=== PATIENT | female | born 1950 | race Caucasian/White ===

== ENCOUNTER → 2017-02-17 | Outpatient (REF) | payer MEDICARE, OTHER | LOC: M LABDRAW1 13:47 | PROVIDERS: ATTEND Internal Medicine Endocrinology, Diabetes & Metabolism | DX: E89.0 Postprocedural hypothyroidism (principal); E55.9 Vitamin D deficiency, unspecified ==

== ENCOUNTER → 2017-09-18 | Outpatient (CLI) | payer MEDICARE, OTHER | LOC: M RAD 10:46 | DX: I70.213 Atherosclerosis of native arteries of extremities with intermittent claudication, bilateral legs (principal) | CPT/HCPCS: 93923 ==

== ENCOUNTER → 2017-10-14 | Outpatient (CLI) | payer MEDICARE, OTHER ==
[~2017-10-14] MED LIST: HEPARIN 1,000 UNITS/ML 10ML VIAL (FOR RADIOLOGY& DIALYSIS ONLY) As Ordered; ISOVUE-300 61% 50ML VIAL (Q9967) As Ordered; MIDAZOLAM INJ 2 MG/2 ML VIAL (J2250) As Ordered; fentaNYL 100 MCG/2 ML INJECTION (J3010) As Ordered
[2017-10-14 08:37] LABS: HEMATOCRIT 37.7 % (36.0-47.0); MEAN CORPUSCULAR HGB CONC 34.5 g/dl (32.0-36.5); MEAN CORPUSCULAR VOLUME 84.2 fl (80.0-96.0); PLATELET COUNT, AUTOMATED 331 10^3/uL (150-450); RED BLOOD COUNT 4.48 10^6/uL (4.00-5.40); RED CELL DISTRIBUTION WIDTH 13.2 % (11.5-14.5); WHITE BLOOD COUNT 6.7 10^3/uL (4.0-10.0)
[2017-10-14 08:56] LABS: ANION GAP 5 MEQ/L (8-16); BLOOD UREA NITROGEN 31 MG/DL (7-18); CALCIUM LEVEL 9.5 MG/DL (8.8-10.2); CARBON DIOXIDE LEVEL 24 MEQ/L (21-32); CHLORIDE LEVEL 111 MEQ/L (98-107); CREATININE FOR GFR 1.36 MG/DL (0.55-1.30); GLOMERULAR FILTRATION RATE 41.5 (>45); GLUCOSE, FASTING 164 MG/DL (70-100); POTASSIUM SERUM 3.7 MEQ/L (3.5-5.1); SODIUM LEVEL 140 MEQ/L (136-145)
== END | disposition home or self-care (01) ==
LOC: M IRPRO 07:34
DX: I70.213 Atherosclerosis of native arteries of extremities with intermittent claudication, bilateral legs (principal); N18.9 Chronic kidney disease, unspecified; Z72.0 Tobacco use
CPT/HCPCS: 36200

== ENCOUNTER → 2018-02-17 | Outpatient (REF) | payer MEDICARE, OTHER ==
[2018-02-17 17:36] LABS: FREE T4 1.36 NG/DL (0.76-1.46)
[2018-02-17 17:36] LABS: CALCIUM LEVEL 9.1 MG/DL (8.8-10.2)
[2018-02-17 21:54] LABS: TOTAL 25(OH) VITAMIN D 48.4 NG/ML (30.0-100.0)
== END ==
LOC: M LABDRAW1 15:50
DX: E89.0 Postprocedural hypothyroidism (principal); E55.9 Vitamin D deficiency, unspecified
CPT/HCPCS: 82310

== ENCOUNTER → 2018-07-02 | Outpatient (CLI) | payer MEDICARE, OTHER ==
[~2018-07-02] MED LIST changes: +ASPI81TA85 PO; +BUSP15TA47 PO; +CALC600T60 PO; +DULO1CAP3 PO; +FENO1CAP2 PO; +FOSA70TA PO; -HEPARIN 1,000 UNITS/ML 10ML VIAL (FOR RADIOLOGY& DIALYSIS ONLY) As Ordered; -ISOVUE-300 61% 50ML VIAL (Q9967) As Ordered; -MIDAZOLAM INJ 2 MG/2 ML VIAL (J2250) As Ordered; +PERCOCET PO; +SERO1TAB3 PO; +SYNT100T PO; +TOPI50TA9 PO; +TOPR100T13 PO; +VITA100067 PO; +VITA400C7 PO; -fentaNYL 100 MCG/2 ML INJECTION (J3010) As Ordered
--- NOTE | 2018-07-02 16:00 | REP ---
DUPLEX DOPPLER ULTRASOUND RIGHT LOWER EXTREMITY ARTERIAL SYSTEM: Real-time ultrasound evaluation and duplex Doppler interrogation of right lower extremity arterial system is performed. There is occlusion of the proximal right superficial femoral artery extending to the mid aspect with reconstitution of the mid aspect. Monophasic waveforms are seen throughout. There is very slow flow distal to the mid right superficial femoral artery. Right Peak systolic velocity External iliac artery 185 cm/s Common femoral artery 67 Profunda 77 Proximal SFA occluded Mid SFA 16 Distal SFA 44 Popliteal 46 Proximal ALEX 17 Proximal STRUCTURAL MANAGER 17 Distal STRUCTURAL MANAGER 14 Distal ALEX 21 IMPRESSION: Occlusion proximal superficial femoral artery with reconstitution of the mid aspect of the superficial femoral artery. There is very slow flow distal to that with diffusely monophasic waveforms. Electronically Signed by Johny Celaya MD 07/02/2018 04:16 P
== END ==
LOC: M RAD 13:09
PROVIDERS: ATTEND Surgery Vascular Surgery
DX: M79.604 Pain in right leg (principal); I70.201 Unspecified atherosclerosis of native arteries of extremities, right leg

== ENCOUNTER → 2018-07-07 | Outpatient (REF) | payer MEDICARE, OTHER ==
[2018-07-07 17:11] LABS: CALCIUM LEVEL 9.1 MG/DL (8.8-10.2)
[2018-07-07 17:30] LABS: TOTAL 25(OH) VITAMIN D 51.2 NG/ML (30.0-100.0)
== END ==
LOC: M LABDRAW1 15:47
PROVIDERS: ATTEND Nurse Practitioner Family
DX: M81.0 Age-related osteoporosis without current pathological fracture (principal)

== ENCOUNTER → 2018-08-02 | Outpatient (REF) | payer MEDICARE, OTHER ==
[2018-08-02 18:24] LABS: CALCIUM LEVEL 9.3 MG/DL (8.8-10.2); CREATININE FOR GFR 1.68 MG/DL (0.55-1.30); GLOMERULAR FILTRATION RATE 32.5 (>45); POTASSIUM SERUM 4.4 MEQ/L (3.5-5.1)
[2018-08-02 18:26] LABS: BASO # 0.1 10^3/uL (0.0-0.2); BASO % 0.7 % (0.0-1.0); EOS # 0.2 10^3/uL (0.0-0.50); EOS % 2.6 % (0.0-3.0); HEMATOCRIT 40.2 % (36.0-47.0); HEMOGLOBIN 13.3 g/dl (12.0-15.5); LYMPH % 33.9 % (24.0-44.0); MEAN CORPUSCULAR HEMOGLOBIN 28.4 pg (27.0-33.0); MEAN CORPUSCULAR HGB CONC 33.1 g/dl (32.0-36.5); MEAN CORPUSCULAR VOLUME 85.9 fl (80.0-96.0); MONO # 0.6 10^3/uL (0.0-0.8); MONO % 7.2 % (0.0-5.0); NEUTROPHILS # 4.9 10^3/uL (1.8-7.7); NEUTROPHILS % 55.3 % (36.0-66.0); PLATELET COUNT, AUTOMATED 336 10^3/uL (150-450); RED BLOOD COUNT 4.68 10^6/uL (4.00-5.40); WHITE BLOOD COUNT 8.8 10^3/uL (4.0-10.0)
== END ==
LOC: M LABDRAW1 17:20
PROVIDERS: ATTEND Surgery Vascular Surgery
DX: I70.213 Atherosclerosis of native arteries of extremities with intermittent claudication, bilateral legs (principal)

== ENCOUNTER → 2018-08-05 | Outpatient (CLI) | payer MEDICARE, OTHER ==
[~2018-08-05] MED LIST changes: +FENO135C6 PO; -FENO1CAP2 PO; +HEPARIN 1,000 UNITS/ML 10ML VIAL (FOR RADIOLOGY& DIALYSIS ONLY) As Ordered ONE; +ISOVUE-300 61% 50ML VIAL (Q9967) As Ordered ONE; +LIDOCAINE 2% MDV 20 ML VIAL As Ordered ONE; +MIDAZOLAM INJ 2 MG/2 ML VIAL (J2250) As Ordered ONE; +PROTAMINE SULF INJ 50 MG/5 ML VIAL (J2720) As Ordered ONE; +TOPR100T PO; -TOPR100T13 PO; +diphenhydrAMINE INJ 50MG/ML VIAL (J1200) As Ordered ONE; +fentaNYL 100 MCG/2 ML INJECTION (J3010) As Ordered ONE
--- NOTE | 2018-08-18 12:02 | REPIR ---
DATE OF PROCEDURE: 08/05/2018 ATTENDING SURGEON: Dr. Zahira Sahu ASSISTANTS: Tracey Rosas and Mariana Banks. PREOPERATIVE DIAGNOSES: Right lower extremity claudication, chronic renal insufficiency. POSTOPERATIVE DIAGNOSES: Right lower extremity claudication, chronic renal insufficiency. PROCEDURE: Ultrasound-guided left common femoral arterial cannulation, selective right common femoral artery catheter placement with angiogram, right common femoral artery angioplasty with 7 x 40 balloon, right external iliac artery angioplasty with 7 x 40 balloon, Mynx closure of the right common femoral arteriotomy. INDICATION: The patient is a 68-year-old female with right lower extremity claudication who has undergone a right femoral endarterectomy but has continued pain in the right lower extremity. The patient will undergo a right lower extremity angiogram with possible angioplasty stent and/or atherectomy. Risks, benefits and alternative treatment options were discussed with the patient. ANESTHESIA: Local sedation with 1 mg of Versed, 50 mcg of fentanyl and 20 mL of 2% lidocaine. FLUOROSCOPY TIME: 1.5 minutes. CONTRAST: 3 mL. SEDATION TIME: From 8:58 a.m. to 9:40 a.m. for a total of 42 minutes. HEPARIN: 7000 units. PROTAMINE: 50 mg. COMPLICATIONS: None. DRAINS: None. SPECIMENS: None. DESCRIPTION OF PROCEDURE: The patient was taken to the angiography suite, placed supine on the angiography table and then prepped and draped in standard surgical fashion. The left common femoral artery was cannulated using ultrasound guidance. The catheter was brought up over the bifurcation, placed in the right common femoral artery and angiogram was performed showing stenosis at the junction of the external iliac artery and common femoral artery in the region of the previous patch angioplasty. This was then angioplastied with 7 x 40 balloon with a completion angiogram showing resolution of the stenosis and excellent flow through the external iliac artery into the common femoral artery and profunda femoris. The superficial femoral artery was noted to be occluded. Catheters and wires were removed and the sheath was removed and a Mynx closure device used to close the arteriotomy in the left common femoral artery with an additional 10 minutes of adjunctive pressure applied for hemostasis. Dressings were then applied. The patient tolerated procedure well. All instrument, sponge and needle counts were correct at the end the case. There were no complications. Dr. Sahu was present for and directed the entire case. The patient was transferred to the holding area and subsequently discharged in stable condition.
== END | disposition home or self-care (01) ==
LOC: M IRPRO 07:55
PROVIDERS: ATTEND Surgery Vascular Surgery
DX: I70.211 Atherosclerosis of native arteries of extremities with intermittent claudication, right leg (principal); N18.9 Chronic kidney disease, unspecified
CPT/HCPCS: 37220; 37224; 75710; C1725; C1760; C1769; C1887; C1894; J2250; J2720; J3010; Q9967

== ENCOUNTER → 2018-08-26 | Outpatient (CLI) | payer MEDICARE, OTHER ==
[~2018-08-26] MED LIST changes: -HEPARIN 1,000 UNITS/ML 10ML VIAL (FOR RADIOLOGY& DIALYSIS ONLY) As Ordered ONE; -ISOVUE-300 61% 50ML VIAL (Q9967) As Ordered ONE; -LIDOCAINE 2% MDV 20 ML VIAL As Ordered ONE; -MIDAZOLAM INJ 2 MG/2 ML VIAL (J2250) As Ordered ONE; -PROTAMINE SULF INJ 50 MG/5 ML VIAL (J2720) As Ordered ONE; -diphenhydrAMINE INJ 50MG/ML VIAL (J1200) As Ordered ONE; -fentaNYL 100 MCG/2 ML INJECTION (J3010) As Ordered ONE
--- NOTE | 2018-08-26 18:20 | REP ---
Unilateral right lower extremity arterial Doppler ultrasound: History: Intermittent claudication. Most recent angiography August 04, 2018. The patient is status post right external iliac and right common femoral artery angioplasty. Sonographic findings: The right superficial femoral artery is seen to be occluded with reconstitution distally. There is a stenosis evidence of stenosis in the right profunda. Substantial plaquing is visible. Monophasic waveforms are noted. Velocity chart right lower extremity arteries: External iliac artery 151 cm/S CF A 58 Profunda 128 Proximal SFA occluded Mid SFA 22 Distal SFA 19 Popliteal 41 Proximal AT A 20 Tibioperoneal trunk 37 Proximal PRODUCT REPRESENTATIVE 18 Distal AT A 15 Distal AT A 20 Electronically Signed by Ti Antunez MD 08/26/2018 06:12 P
== END ==
LOC: M RAD 12:46
PROVIDERS: ATTEND Surgery Vascular Surgery
DX: I70.213 Atherosclerosis of native arteries of extremities with intermittent claudication, bilateral legs (principal)

== ENCOUNTER → 2019-01-31 | Outpatient (REF) | payer MEDICARE, OTHER ==
[~2019-01-31] MED LIST changes: -DULO1CAP3 PO; +DULO1CAP6 PO
[2019-01-31 16:56] LABS: CALCIUM LEVEL 9.5 MG/DL (8.8-10.2); FREE T4 1.16 NG/DL (0.76-1.46); THYROID STIMULATING HORMONE 4.72 uIU/ML (0.358-3.740)
[2019-01-31 17:01] LABS: TOTAL 25(OH) VITAMIN D 43.2 NG/ML (30.0-100.0)
== END ==
LOC: M LABDRAW1 15:46
PROVIDERS: ATTEND Nurse Practitioner Family
DX: E89.0 Postprocedural hypothyroidism (principal); E55.9 Vitamin D deficiency, unspecified; Z79.899 Other long term (current) drug therapy

== ENCOUNTER → 2019-03-04 | Outpatient (CLI) | payer MEDICARE, OTHER ==
--- NOTE | 2019-03-04 15:23 | REP ---
Bilateral lower extremity arterial Doppler ultrasound: History: Nicotine dependence. Atherosclerosis. Intermittent claudication bilaterally. Status post right right common femoral artery angioplasty and right external iliac angioplasty. Prior right femoral endarterectomy. Sonographic findings: Ankle brachial indices could not be accomplished due to noncompressible vessels. Monophasic waveforms are noted below the occluded segment of the proximal superficial femoral artery. The mid SFA on the right is revascularized and in the distal SFA is occluded. A left common femoral artery stenosis is seen. There is a left mid superficial femoral artery stenosis visible as well. Biphasic arterial wave forms are noted on the left. Right lower extremity arterial Doppler velocity chart: Right CF A 151 cm/S Profunda 116 Proximal SFA occluded Mid SFA 24 cm/S revascularized Distal SFA 237/37 cm/S Popliteal 45 Proximal AT 10 Tibioperoneal trunk 38 Proximal HUB INVENTORY SPECIALIST 825 Distal HUB INVENTORY SPECIALIST 14 Distal AT A 22 Left lower extremity arterial Doppler velocity chart: Left CF A 229/415 cm/S Profunda 390/153 Proximal SFA 287/167 Mid SFA 165/554/and 39 Distal SFA 78 Popliteal 83 Proximal AT A 53 Tibioperoneal trunk 57 Proximal HUB INVENTORY SPECIALIST 40 Distal HUB INVENTORY SPECIALIST 35 Distal AT A 30 Electronically Signed by Ti Antunez MD 03/04/2019 03:14 P
== END ==
LOC: M RAD 10:33
PROVIDERS: ATTEND Physician Assistant
DX: I70.213 Atherosclerosis of native arteries of extremities with intermittent claudication, bilateral legs (principal)

== ENCOUNTER → 2019-08-01 | Outpatient (REF) | payer MEDICARE, OTHER ==
[2019-08-01 16:35] LABS: CALCIUM LEVEL 9.1 MG/DL (8.8-10.2); FREE T4 1.27 NG/DL (0.76-1.46); THYROID STIMULATING HORMONE 4.36 uIU/ML (0.358-3.740)
== END ==
LOC: M LABDRAW1 14:25
PROVIDERS: ATTEND Nurse Practitioner Family
DX: M81.0 Age-related osteoporosis without current pathological fracture (principal); E89.0 Postprocedural hypothyroidism

== ENCOUNTER → 2019-09-27 | Outpatient (CLI) | payer MEDICARE, OTHER ==
[~2019-09-27] MED LIST changes: -ASPI81TA85 PO; +ASPI81TA86 PO
[2019-09-27 17:17] LABS: FREE T4 1.19 NG/DL (0.76-1.46); THYROID STIMULATING HORMONE 3.45 uIU/ML (0.358-3.740)
== END ==
LOC: M PLALAB 14:47
PROVIDERS: ATTEND Internal Medicine Endocrinology, Diabetes & Metabolism
DX: E89.0 Postprocedural hypothyroidism (principal)

== ENCOUNTER → 2020-01-26 | Outpatient (CLI) | payer MEDICARE, OTHER ==
--- NOTE | 2020-02-15 08:16 | REP ---
BILATERAL LOWER EXTREMITY ARTERIAL ULTRASOUND CLINICAL: Peripheral vascular disease. COMPARISON: 03/04/2019. TECHNIQUE: Real-time schmidt scale and color Doppler evaluation using linear high frequency transducer. FINDINGS: Extensive mixed atheromatous plaquing noted through the bilateral lower extremity arterial structures. The right ISA measures 0.6. The left ISA measures 1.0. The right lower extremity demonstrates biphasic wave patterns to the level of the distal superficial femoral artery followed by monophasic wave patterns to the ankle. There is an area of occlusion at the proximal superficial femoral artery with subsequent revascularization by collateral vessels. The left lower extremity demonstrates biphasic wave patterns throughout its course with areas of moderate 2:1 stenosis through the proximal superficial femoral artery. RIGHT LEFT Common femoral artery 74 cm/s biphasic 155 cm/s biphasic Profunda 50 cm/s biphasic 155 cm/s biphasic Proximal SFA Occluded 270 cm/s biphasic Mid SFA 20 cm/s biphasic 104 cm/s biphasic Distal SFA 47 cm/s biphasic 118 cm/s biphasic Popliteal 36 cm/s monophasic 58 cm/s biphasic Proximal ALEX 46 cm/s biphasic 38 cm/s biphasic Tibioperoneal trunk 22 cm/s monophasic 34 cm/s biphasic Proximal EMU FARMER 37 cm/s biphasic 31 cm/s biphasic Distal EMU FARMER 15 cm/s monophasic 21 cm/s biphasic Distal ALEX 46 cm/s biphasic 28 cm/s biphasic IMPRESSION: Extensive mixed atheromatous plaquing noted bilaterally. Focal area of occlusion through the proximal right superficial femoral artery with subsequent revascularization and focal area of moderate 2:1 stenosis in the proximal left superficial femoral artery noted. MTDD
== END ==
LOC: M RAD 12:43
PROVIDERS: ATTEND Physician Assistant
DX: I70.213 Atherosclerosis of native arteries of extremities with intermittent claudication, bilateral legs (principal); F17.210 Nicotine dependence, cigarettes, uncomplicated

== ENCOUNTER → 2020-02-07 | Outpatient (CLI) | payer MEDICARE, OTHER ==
[2020-02-07 17:09] LABS: CALCIUM LEVEL 9.8 MG/DL (8.8-10.2); FREE T4 1.15 NG/DL (0.76-1.46); THYROID STIMULATING HORMONE 3.02 uIU/ML (0.358-3.740)
== END ==
LOC: M PLALAB 15:06
PROVIDERS: ATTEND Nurse Practitioner Family
DX: M81.0 Age-related osteoporosis without current pathological fracture (principal); E55.9 Vitamin D deficiency, unspecified; E89.0 Postprocedural hypothyroidism

== ENCOUNTER → 2020-05-04 | Outpatient (CLI) | payer MEDICARE, OTHER ==
--- NOTE | 2020-05-04 12:43 | REP ---
INDICATION: OCCLUSION AND STENOSIS OF BILATERAL CAROTID ARTERIES. COMPARISON: 12/18/2010. TECHNIQUE: Bilateral carotid artery duplex ultrasound. FINDINGS: Peak flow velocities: Right left Internal carotid artery occluded cm/sec 127 cm/sec Int. Carotid diastolic occluded cm/sec 23.5 cm/sec External carotid artery 132 cm/sec 107 cm/sec Common carotid artery 108 cm/sec 168 cm/sec ICA-CCA ratio occluded 0.7 There is normal antegrade flow in the right vertebral artery. There is bidirectional flow in the left vertebral artery compatible with partial left subclavian steal. IMPRESSION: There is mild to moderate atheromatous plaque in the distal common carotid arteries bilaterally extending into the right external carotid artery and into the left internal and external carotid arteries. The right internal carotid artery is occluded. There are findings compatible with partial left subclavian steal. Consider follow-up MRA or CTA of the aortic arch and brachiocephalic arteries. <Electronically signed by Johny Santana > 05/04/20 [id number]
== END ==
LOC: M RAD 08:42
PROVIDERS: ATTEND Physician Assistant
DX: I65.23 Occlusion and stenosis of bilateral carotid arteries (principal)

== ENCOUNTER → 2020-08-10 | Outpatient (CLI) | payer MEDICARE, OTHER ==
--- NOTE | 2020-08-10 16:56 | REP ---
INDICATION: ATH SONYA ART OF EXT WITH INTERMIT GAVINO, ALMAZ LEGS COMPARISON: 01/26/2020. TECHNIQUE: Real time celaya scale and Duplex Doppler evaluation of the bilateral lower extremity arterial vasculature using linear high frequency transducer. FINDINGS: Celaya scale and duplex doppler images demonstrate plaquing and narrowing in the right common iliac artery with stenosis approximately 2.6-1. Monophasic waveforms noted in the right common and external iliac arteries. Severe diffuse plaque is seen throughout the lower extremity arterial systems right greater than left. Monophasic waveforms are seen throughout the right lower extremity. There is occlusion of the origin of the right superficial femoral artery with revascularization of the mid aspect. There is severe stenosis of the distal left common femoral artery extending to the profunda and proximal superficial femoral artery. There is also significant stenosis of the mid left SFA. Peak systolic velocities (cm/sec) Distal abdominal aorta: 90 Common iliac artery: Right 444; left 175 External iliac artery: Right 208; left 136 Common femoral artery: Right 136; Left 509 Profunda femoris: Right 111; Left 479 SFA (proximal): Right occluded; Left 413 SFA (mid): Right 9; Left 639 SFA (distal): Right 32; Left 141 Popliteal artery: Right 56; Left 76 ALEX (prox.): Right 31; Left 46 Tibioperoneal trunk: Right 29; Left 60 TRAUMA DOCTOR (prox.): Right 25; Left 47 TRAUMA DOCTOR (distal): Right 15; Left 26 ALEX (distal): Right 24; Left 33 IMPRESSION: Stenosis right common iliac artery. Occlusion origin right SFA with revascularization mid SFA. Severe stenosis left common femoral artery and proximal superficial femoral artery, as well as mid left SFA. <Electronically signed by Johny Celaya > 08/10/20 [id number]
== END ==
LOC: M RAD 13:09
PROVIDERS: ATTEND Physician Assistant
DX: I70.213 Atherosclerosis of native arteries of extremities with intermittent claudication, bilateral legs (principal); R09.89 Other specified symptoms and signs involving the circulatory and respiratory systems

== ENCOUNTER → 2020-08-10 | Outpatient (REF) | payer MEDICARE, OTHER | LOC: M LAB REF 18:51 | PROVIDERS: ATTEND Internal Medicine Endocrinology, Diabetes & Metabolism | DX: E89.0 Postprocedural hypothyroidism (principal) ==

== ENCOUNTER → 2021-02-08 | Outpatient (CLI) | payer MEDICARE, OTHER ==
--- NOTE | 2021-02-08 12:33 | REP ---
INDICATION: PAIN. COMPARISON: None TECHNIQUE: AP and lateral FINDINGS: There is a moderate to severe levoconvex thoracolumbar curve the apex of which is at the T12-L1 level. There is mild to moderate disc space narrowing at every level. Anterior lipping is noted. Vertebral body height appears to be within normal limits. IMPRESSION: Chronic changes as described above. <Electronically signed by Kirt Reilly > 02/08/21 [id number]
--- NOTE | 2021-02-08 12:35 | REP ---
INDICATION: PAIN. COMPARISON: None. TECHNIQUE: Five views FINDINGS: There is a levoconvex thoracolumbar curve. Bilateral marginal osteophytosis is seen at every level. There is disc space narrowing at every level with air density seen in the L4-5 disc space secondary to vacuum phenomena from degenerative disc disease. Anterior lipping is seen at every level. Vertebral body height is within normal limits. The pedicles appear to be intact bilaterally. The bones appear demineralized. IMPRESSION: Chronic changes as described above. <Electronically signed by Kirt Reilly > 02/08/21 [id number]
== END ==
LOC: M WUC 11:21
PROVIDERS: ATTEND Physician Assistant
DX: M54.5 Low back pain (principal); M51.35 Other intervertebral disc degeneration, thoracolumbar region; M25.78 Osteophyte, vertebrae

== ENCOUNTER → 2021-02-13 | Outpatient (CLI) | payer MEDICARE, OTHER ==
[~2021-02-13] MED LIST changes: +ASPI81TA26 PO; +BACL10TA2 PO; +BUTA-199 PO; +CYMB1CAP5 PO; +CYMB60CA3 PO; +D-101000 PO; +DIVA250T67 PO; +LEVO112T2 PO; +PROL60SO SC; +QUET50TA4 PO; +VITA400C53 PO
[2021-02-13 19:07] LABS: CALCIUM LEVEL 9.8 MG/DL (8.8-10.2); THYROID STIMULATING HORMONE 1.08 uIU/ML (0.358-3.740); TOTAL 25(OH) VITAMIN D 57.5 NG/ML (30.0-100.0)
== END ==
LOC: M PLALAB 14:46
PROVIDERS: ATTEND Internal Medicine Endocrinology, Diabetes & Metabolism
DX: E89.0 Postprocedural hypothyroidism (principal); M81.0 Age-related osteoporosis without current pathological fracture; E55.9 Vitamin D deficiency, unspecified

== ENCOUNTER 2021-02-14 15:42 | Inpatient (IN) | payer MEDICARE, OTHER ==
[2021-02-14] VITALS (7 sets, daily range): BP systolic 99–216; BP diastolic 48–91
[~2021-02-14] VITALS: Ht 165.1 cm; Wt 45.3 kg
[~2021-02-14 15:42] MED LIST changes: -ASPI81TA26 PO; -BACL10TA2 PO; -BUTA-199 PO; -CYMB1CAP5 PO; -CYMB60CA3 PO; -D-101000 PO; -DIVA250T67 PO; -LEVO112T2 PO; -PROL60SO SC; -QUET50TA4 PO; -VITA400C53 PO
--- NOTE | 2021-02-14 16:25 | REP ---
INDICATION: R/O CVA. COMPARISON: No comparison brain imaging. TECHNIQUE: Helical scanning is acquired. 5 mm axial images were reformatted. Coronal MPR images were generated. FINDINGS: Preliminary digital grill prep cook radiograph is unremarkable. The bony calvarium is intact. There is moderate vascular calcification in the distal internal carotid arteries bilaterally. The visualized paranasal sinuses are clear. No intraorbital abnormality is seen. On soft tissue window settings, there are scattered periventricular low-density areas in the white matter consistent with small vessel atherosclerotic change. There is an old appearing lacunar infarct in the left basal ganglia. There is a well-defined small lacunar infarct in the right basal ganglia as well. No evidence of acute infarct is appreciated. There is no evidence of hemorrhage or extra-axial fluid collection. No mass or midline shift is seen. IMPRESSION: Vascular calcification and moderate small vessel changes. There are old appearing lacunar infarcts 1 on each side in the basal ganglia. No definite acute infarct seen. No bleed. <Electronically signed by Markel Antunez > 02/14/21 [id number]
[2021-02-14] MEDS ORDERED: niCARdipine IV 40 MG in IV 1 EA IV SCH ×3 (17:05→17:25)
[2021-02-14] MEDS ORDERED: niCARdipine 40MG IN 200ML NACL IV BAG As Ordered ONE (17:18)
[2021-02-14 17:21] LABS: BASO % 0.2 % (0.0-1.0); EOS # 0.2 10^3/uL (0.0-0.5); EOS % 1.2 % (0.0-3.0); HEMATOCRIT 44.1 % (36.0-47.0); HEMOGLOBIN 14.8 g/dl (12.0-15.5); LYMPH # 4.9 10^3/uL (1.5-5.0); LYMPH % 31.3 % (24.0-44.0); MEAN CORPUSCULAR HGB CONC 33.6 g/dl (32.0-36.5); MEAN CORPUSCULAR VOLUME 86.5 fl (80.0-96.0); MONO # 1.4 10^3/uL (0.0-0.8); MONO % 8.7 % (2.0-8.0); NEUTROPHILS % 57.7 % (36.0-66.0); PLATELET COUNT, AUTOMATED 342 10^3/uL (150-450); WHITE BLOOD COUNT 15.7 10^3/uL (4.0-10.0)
[2021-02-14 17:29] LABS: CALCIUM LEVEL 9.9 MG/DL (8.8-10.2); CREATININE FOR GFR 1.21 MG/DL (0.55-1.30); POTASSIUM SERUM 4.7 MEQ/L (3.5-5.1)
[2021-02-14] MEDS ORDERED: KETOROLAC 30 MG/ML 1ML VIAL IV ONE (17:40)
[2021-02-14] MEDS ORDERED: MORPHINE 4 MG/ML 1ML VIAL/SYRINGE (J2270) IV ONE (17:50)
[2021-02-14] MEDS ORDERED: ONDANSETRON 4MG/2ML VIAL IV ONE (17:50)
[2021-02-14] MEDS ORDERED: VALSARTAN 40MG TABLET (DIOVAN) PO SCH (18:35)
--- NOTE | 2021-02-14 18:50 | HPEPDOC ---
[facility] Medical History & Physical Date of Admission Feb 14, 2021 Date of Service: Feb 14, 2021 History and Physical CHIEF COMPLAINT: "Headache" HISTORY OF PRESENT ILLNESS: 71-year-old female with a past medical history of peripheral vascular disease, hypertension, hypothyroidism, osteoporosis, and depression presented to emergency room department with complaints of headache. She began to experience headaches 3 to 4 days ago which progressively got worse. She described him as throbbing, 10/10 in severity, and could not identify any relieving factors. She had associated nausea and vomiting. Denies focal deficits, weakness, numbness, and tingling. She attributes her symptoms to prednisone that was recently star eric for apparently degenerative joint disease of her back by her primary care physician on 02/08. She does endorse having elevated blood pressures after she was started on prednisone. This was noted in her last follow-up appointment with her medical reviewer on 02/13, her blood pressure at that time was 185/85 from what she recalls. PAST MEDICAL HISTORY: As above PAST SURGICAL HISTORY: 1. Lower extremity angiograms without intervention 2. Tonsillectomy in childhood SOCIAL HISTORY: Lives with her . She reports smoking half pack a day daily and use of marijuana occasionally. She denies drinking. FAMILY HISTORY: Did not report any family history ALLERGIES: Please see below. REVIEW OF SYSTEMS: 10 point review of system was negative except for what is noted in the HPI HOME MEDICATIONS: Please see below. PHYSICAL EXAMINATION: VITAL SIGNS: Please see below General: Lying in bed, no acute distress Head/Neck/Throat: Trachea midline, mucous membranes moist Eyes: Sclera anicteric, no erythema or discharge appreciated bilaterally Thorax: Normal respiratory effort on room air, lungs clear to auscultation bilaterally, no wheezes/rales/rhonchi Cardiovascular: Normal rate, regular rhythm, normal S1, S2; no S3, S4, rubs/gallops/murmurs Abdomen: Bowel sounds present, soft/nontender/nondistended Genitourinary: No CVA tenderness, no Turner in place Musculoskeletal: Moving all extremities, no edema Skin: Warm, dry Neurologic: AAOx3, speech fluent and goal-directed, no focal deficits, grossly intact LABORATORY DATA: See below. IMAGING: CT Head without contrast FINDINGS: Preliminary digital legal analyst radiograph is unremarkable. The bony calvarium is intact. There is moderate vascular calcification in the distal internal carotid arteries bilaterally. The visualized paranasal sinuses are clear. No intraorbital abnormality is seen. On soft tissue window settings, there are scattered periventricular low-density areas in the white matter consistent with small vessel atherosclerotic change. There is an old appearing lacunar infarct in the left basal ganglia. There is a well- defined small lacunar infarct in the right basal ganglia as well. No evidence of acute infarct is appreciated. There is no evidence of hemorrhage or extra-axial fluid collection. No mass or midline shift is seen. IMPRESSION: Vascular calcification and moderate small vessel changes. There are old appearing lacunar infarcts 1 on each side in the basal ganglia. No definite acute infarct seen. No bleed. ASSESSMENT/PLAN: #Hypertensive emergency -Presented to emergency department with blood pressure of 230/110 and headaches. -CT scan of the head showed no acute changes. -She was started on a nicardipine drip. Goal would be to decrease systolic blood pressure by 25% in first 1 to 2 hours and if she remains clinically stable we will lower the blood pressure 260/100-110 in the next 2 to 6 hours and cautiously to normal within 24 to 48 hours. -Initiate antihypertensive medications -we will start off with valsartan, and if needed introduce amlodipine. We will hold her metoprolol due to her heart rate. #Headache -We will treat her blood pressure and reevaluate. CT scan of the head was negative. There is no focal deficits appreciated on clinical exam. #Leukocytosis -No signs of systemic infection. This is likely reactive. Follow off antibiotics #Depression -Continue with mood stabilizers once verified by pharmacy #Peripheral vascular disease -Continue with aspirin. She is not on any statin therapy #Hypothyroidism -Check TSH. Continue with levothyroxine #OA -will start Tylenol for pain control #DVT prophylaxis -Heparin subcu Dispo: ICU for nicardipine drip. Critical care time spent 45 minutes Vital Signs Vital Signs Date Time Temp Pulse Resp B/P (MAP) Pulse Ox O2 Delivery O2 Flow Rate FiO2 02/14/21 17:03 55 218/110 (146) 98 Room Air 02/14/21 15:42 97.3 16 Laboratory Data Labs 24H Laboratory Tests 2 02/14/21 16:56: Immature Granulocyte % (Auto) 0.9, Neutrophils (%) (Auto) 57.7, Lymphocytes (%) (Auto) 31.3, Monocytes (%) (Auto) 8.7H, Eosinophils (%) (Auto) 1.2, Basophils (%) (Auto) 0.2, Neutrophils # (Auto) 9.0H, Lymphocytes # (Auto) 4.9, Monocytes # (Auto) 1.4H, Eosinophils # (Auto) 0.2, Basophils # (Auto) 0.0, Nucleated Red Blood Cells % (auto) 0.0, Anion Gap 6L, Glomerular Filtration Rate 47.0, Calcium Level 9.9 CBC/BMP Laboratory Tests 02/14/21 16:56 Home Medications Scheduled Aspirin (Aspirin EC) 81 Mg Tablet.dr, 81 MG PO DAILY Buspirone HCl (Buspirone HCl) 15 Mg Tab, 7.5 MG PO QHS Calcium Carbonate (Calcium) 600 Mg Tab, 600 MG PO BID Cholecalciferol (Vitamin D3) (Vitamin D3) 25 Mcg Capsule, 75 MCG PO QPM Denosumab Injection (Prolia) 60 Mg/1 Ml Syringe, 60 MG SC ASDIRECTED EVERY 6 MONTHS, DUE 02/18/21 Divalproex Sodium (Divalproex Sodium) 250 Mg Tablet.dr, 250 MG PO DAILY Duloxetine Hcl (Cymbalta) 60 Mg Capsule.dr, 60 MG PO DAILY TAKES WITH 30 MG CAPSULE FOR 90 MG TOTAL DOSE Duloxetine Hcl (Cymbalta) 30 Mg Capsule.dr, 30 MG PO DAILY TAKES WITH 60 MG CAPSULE FOR 90 MG TOTAL DOSE Fenofibric Acid (Choline) (Fenofibric Acid) 135 Mg Cap, 135 MG PO QPM Levothyroxine Sodium (Levothyroxine Sodium) 112 Mcg Tablet, 112 MCG PO DAILY Metoprolol Succinate (Toprol Xl) 100 Mg Tab, 100 MG PO DAILY Quetiapine Fumarate (Quetiapine Fumarate) 50 Mg Tablet, 50 MG PO QHS Vitamin E (Vitamin E) 400 Unit Capsule, 400 UNIT PO QPM Scheduled PRN Baclofen (Baclofen) 10 Mg Tablet, 10 MG PO DAILY PRN for SPASMS Butalb/Acetaminophen/Caffeine (Jtsyvb-Dgegidwn-Jvdo 50-325-40) 1 Each Tablet, 2 TABS PO DAILY PRN for MIGRAINE Allergies Coded Allergies: Contrast Media (Verified Allergy, Intermediate, HIVES, 12/29/17) clopidogrel (Unverified Allergy, Unknown, 02/14/21) levofloxacin (Verified Adverse Reaction, Intermediate, MUSCLE RIGIDITY, 02/14/21) niacin (Verified Adverse Reaction, Intermediate, HIVES/FLUSHING, 02/14/21) ticagrelor (Verified Adverse Reaction, Intermediate, TACHYCARDIA, 02/14/21) A-FIB/CHADSVASC A-FIB History Current/History of A-Fib/PAF?: No MONICA EDMONDSON M.D. Feb 14, 2021 18:29
[2021-02-14 19:30] LABS: RSV AMPLIFICATION NEGATIVE (NEGATIVE)
[2021-02-14] MEDS ORDERED: D-101000 PO (19:55)
[2021-02-14] MEDS ORDERED: ASPI81TA26 PO (19:55)
[2021-02-14] MEDS ORDERED: DIVA250T67 PO (19:55)
[2021-02-14] MEDS ORDERED: QUET50TA4 PO (19:55)
[2021-02-14] MEDS ORDERED: PROL60SO SC (19:55)
[2021-02-14] MEDS ORDERED: BACL10TA2 PO (19:55)
[2021-02-14] MEDS ORDERED: BUTA-199 PO (19:55)
[2021-02-14] MEDS ORDERED: CYMB1CAP5 PO (19:55)
[2021-02-14] MEDS ORDERED: LEVO112T2 PO (19:55)
[2021-02-14] MEDS ORDERED: VITA400C53 PO (19:55)
[2021-02-14] MEDS ORDERED: CYMB60CA3 PO (19:55)
[2021-02-14] MEDS ORDERED: HOME MED LIST COMPLETE! XX SCH (20:00)
[2021-02-14] MEDS ORDERED: ONDANSETRON 4MG/2ML VIAL IV PRN (21:40)
--- NOTE | 2021-02-14 21:47 | ECGEPIP ---
[facility] - ED Test Date: 2021-02-14 Pat Name: YOHAN RDZ Department: Room: - Gender: Female Ct Tech: long : 1950 Requested By: Negro Sebastian Order Number: [id number] Reading MD: Juana Pan Measurements Intervals [place] Rate: 58 P: 72 [place]: 150 QRS: 31 QRSD: 80 T: 52 QT: 424 QTc: 416 Interpretive Statements Sinus bradycardia No prior Electronically Signed on 02-14-2021 21:47:07 EDT by Juana Pan
[2021-02-14] MEDS ORDERED: PILL CUTTER 1 EACH XX PRN (22:25)
[2021-02-14] MEDS: ACETAMINOPHEN 650MG ER TAB (TYLENOL ARTHRITIS) PO SCH (22:43)
[2021-02-14] MEDS: QUEtiapine FUMARATE 50MG TAB PO SCH (22:43)
[2021-02-14] MEDS: busPIRone 5 MG TAB PO SCH (22:44)
[2021-02-14] MEDS: HEPARIN SOD (PORCINE) 5000UNITS/ML 1ML VIAL/SYRINGE SQ SCH (22:44)
[2021-02-15] VITALS (12 sets, daily range): BP systolic 94–177; BP diastolic 50–73
[2021-02-15 04:52] LABS: HEMATOCRIT 36.9 % (36.0-47.0); MEAN CORPUSCULAR HEMOGLOBIN 29.7 pg (27.0-33.0); MEAN CORPUSCULAR HGB CONC 34.4 g/dl (32.0-36.5); MEAN CORPUSCULAR VOLUME 86.2 fl (80.0-96.0); PLATELET COUNT, AUTOMATED 287 10^3/uL (150-450); RED BLOOD COUNT 4.28 10^6/uL (4.00-5.40); WHITE BLOOD COUNT 10.8 10^3/uL (4.0-10.0)
[2021-02-15 04:55] LABS: HEMOGLOBIN 12.7 g/dl (12.0-15.5)
[2021-02-15 05:18] LABS: CALCIUM LEVEL 9.4 MG/DL (8.8-10.2); CREATININE FOR GFR 1.41 MG/DL (0.55-1.30); FREE T4 1.09 NG/DL (0.76-1.46); GLOMERULAR FILTRATION RATE 39.4 (>45); PHOSPHORUS LEVEL 4.9 MG/DL (2.5-4.9); POTASSIUM SERUM 4.3 MEQ/L (3.5-5.1); THYROID STIMULATING HORMONE 4.84 uIU/ML (0.358-3.740)
[2021-02-15] MEDS: LEVOTHYROXINE 112MCG TABLET (0.112MG) PO SCH (05:52)
[2021-02-15] MEDS: HEPARIN SOD (PORCINE) 5000UNITS/ML 1ML VIAL/SYRINGE SQ SCH ×3 (05:54→20:33)
[2021-02-15] MEDS: ACETAMINOPHEN 650MG ER TAB (TYLENOL ARTHRITIS) PO SCH ×2 (05:54→13:26)
[2021-02-15] MEDS ORDERED: LEVOTHYROXINE 100MCG TABLET (0.1MG) PO SCH (06:00)
[2021-02-15] MEDS ORDERED: DULoxetine 30MG CAPSULE (CYMBALTA) PO SCH ×2 (09:00)
[2021-02-15] MEDS: amLODIPine 5 MG TAB PO SCH (09:17)
[2021-02-15] MEDS: ASPIRIN 81MG ENTERIC TABLET PO SCH (09:17)
[2021-02-15] MEDS: ACETAMINOPHEN 325 MG TAB PO PRN ×2 (09:18→17:22)
[2021-02-15] MEDS: DIVALPROEX 250 MG TAB PO SCH (09:19)
--- NOTE | 2021-02-15 15:57 | IPNPDOC ---
Subjective Date Seen The patient was seen on 02/15/21. Subjective Chief Complaint/HPI Patient seen and examined at bedside this morning. She reports significant improvement in her headaches. She denies blurred vision, nausea, vomiting, focal deficits. She denies chest pain, palpitations, abdominal pain, nausea, vomiting, problems with urination or bowel movements. Objective Physical Examination Other physical findings General: Lying in bed, no acute distress Head/Neck/Throat: Trachea midline, mucous membranes moist Eyes: Sclera anicteric, PERRLA Thorax: Normal respiratory effort on room air, lungs clear to auscultation bilaterally, no wheezes/rales/rhonchi Cardiovascular: Normal rate, regular rhythm, normal S1, S2; no S3, S4, rubs/gallops/murmurs Abdomen: Bowel sounds present, soft/nontender/nondistended Genitourinary: No CVA tenderness, no Turner in place Musculoskeletal: Moving all extremities, no edema Skin: Warm, dry Neurologic: AAOx3, speech fluent and goal-directed, no focal deficits, grossly intact Assessment /Plan Assessment #Hypertensive emergency -Patient was successfully weaned off the nicardipine drip. Her blood pressure is labile, we will continue with amlodipine 5 mg. Her valsartan was discontinued due to her acute kidney injury this morning. If required will uptitrate antihypertensive medications. #Acute kidney injury -In setting of recently recovered hypertensive emergency as well as receiving valsartan. We will continue to monitor at this time. -Renal ultrasound was ordered as per nephrology recommendations. #Headache -Resolved. #Leukocytosis -No signs of systemic infection. This is likely reactive. Follow off antibiotics #Depression -Continue with buspirone, duloxetine, and quetiapine. #Peripheral vascular disease -Continue with aspirin. She is not on any statin therapy #Hypothyroidism -Continue with levothyroxine #OA -will start Tylenol for pain control #DVT prophylaxis -Heparin subcu Disposition: Patient is off nicardipine drip she can be downgraded. Plan/VTE VTE Prophylaxis Ordered?: Yes VS, I&O, 24H, Fishbone Vital Signs/I&O Vital Signs Date Time Temp Pulse Resp B/P (MAP) Pulse Ox O2 Delivery O2 Flow Rate FiO2 02/15/21 14:00 96.8 68 17 125/60 (81) 92 Room Air I&O- Last 24 Hours up to 6 AM 02/15/21 05:59 Intake Total 380 ml Balance 380 ml Laboratory Data 24H LABS Laboratory Tests 2 02/14/21 16:56: Immature Granulocyte % (Auto) 0.9, Neutrophils (%) (Auto) 57.7, Lymphocytes (%) (Auto) 31.3, Monocytes (%) (Auto) 8.7H, Eosinophils (%) (Auto) 1.2, Basophils (%) (Auto) 0.2, Neutrophils # (Auto) 9.0H, Lymphocytes # (Auto) 4.9, Monocytes # (Auto) 1.4H, Eosinophils # (Auto) 0.2, Basophils # (Auto) 0.0, Nucleated Red Blood Cells % (auto) 0.0, Anion Gap 6L, Glomerular Filtration Rate 47.0, Calcium Level 9.9 02/14/21 18:42: Coronavirus (COVID-19)(PCR) NEGATIVE, Influenza Type A (RT-PCR) NEGATIVE, Influenza Type B (RT-PCR) NEGATIVE, Respiratory Syncytial Virus (PCR) NEGATIVE 02/15/21 04:20: Nucleated Red Blood Cells % (auto) 0.0, Anion Gap 7L, Glomerular Filtration Rate 39.4L, Calcium Level 9.4, Phosphorus Level 4.9, Magnesium Level 2.0, Thyroid Stimulating Hormone (TSH) 4.840H, Free Thyroxine 1.09 CBC/BMP Laboratory Tests 02/14/21 16:56 02/15/21 04:20 MONICA EDMONDSON M.D. Feb 15, 2021 15:57
[2021-02-15] MEDS ORDERED: **hydrALAZINE HCL** 25 MG TAB PO PRN (16:00)
[2021-02-15] MEDS: QUEtiapine FUMARATE 50MG TAB PO SCH (20:33)
[2021-02-15] MEDS: busPIRone 5 MG TAB PO SCH (20:33)
[2021-02-15] MEDS ORDERED: FIORICET TAB PO ONE (21:15)
[2021-02-16] VITALS (9 sets, daily range): BP systolic 137–210; BP diastolic 56–98
[2021-02-16] MEDS: HEPARIN SOD (PORCINE) 5000UNITS/ML 1ML VIAL/SYRINGE SQ SCH ×3 (05:39→22:55)
[2021-02-16] MEDS: LEVOTHYROXINE 112MCG TABLET (0.112MG) PO SCH (05:39)
[2021-02-16 07:19] LABS: HEMATOCRIT 36.3 % (36.0-47.0); MEAN CORPUSCULAR HGB CONC 33.1 g/dl (32.0-36.5); MEAN CORPUSCULAR VOLUME 87.7 fl (80.0-96.0); PLATELET COUNT, AUTOMATED 287 10^3/uL (150-450); RED BLOOD COUNT 4.14 10^6/uL (4.00-5.40); WHITE BLOOD COUNT 10.3 10^3/uL (4.0-10.0)
[2021-02-16 07:47] LABS: CALCIUM LEVEL 9.3 MG/DL (8.8-10.2); CREATININE FOR GFR 1.5 MG/DL (0.55-1.30); GLOMERULAR FILTRATION RATE 36.7 (>45); MAGNESIUM LEVEL 2.1 MG/DL (1.8-2.4); PHOSPHORUS LEVEL 3.9 MG/DL (2.5-4.9); POTASSIUM SERUM 4.5 MEQ/L (3.5-5.1)
[2021-02-16] MEDS: ASPIRIN 81MG ENTERIC TABLET PO SCH (08:29)
[2021-02-16] MEDS: ACETAMINOPHEN 325 MG TAB PO PRN ×2 (08:29→17:21)
[2021-02-16] MEDS: DULoxetine 30MG CAPSULE (CYMBALTA) PO SCH (08:29)
[2021-02-16] MEDS: amLODIPine 5 MG TAB PO SCH (08:30)
[2021-02-16] MEDS: DIVALPROEX 250 MG TAB PO SCH (08:30)
--- NOTE | 2021-02-16 09:34 | REP ---
INDICATION: Acute kidney injury. COMPARISON: None. TECHNIQUE: Urinary tract sonography. Renal artery Doppler assessment. FINDINGS: Scanning at the level of the urinary bladder shows no abnormality. Renal cortical echogenicity pattern is normal bilaterally and contours are smooth. There is no evidence of hydronephrosis, cyst, mass, or calculus in either kidney. The right kidney measures 9.9 x 4.7 x 4.2 cm. Left renal dimensions are 9.3 x 3.8 x 4.7 cm. Doppler data: Peak systolic flow velocity in the abdominal aorta at the level of the main renal arteries is normal, recorded at 63 centimeters/second. Peak systolic flow velocity in the left main renal artery is 158 centimeters/second and that in the right is recorded at 131 centimeters/second. These values are normal as well. Renal to aortic flow velocity ratios are therefore normal at 2.1 on the right and 2.5 on the left. Resistive indices and acceleration times are measured in the upper, mid, and lower pole renal arteries bilaterally and these values are bilaterally normal. IMPRESSION: Normal urinary tract sonography. No Doppler evidence to suggest renal artery stenosis. <Electronically signed by Markel Antunez > 02/16/21 0917
[2021-02-16] MEDS ORDERED: **hydrALAZINE** 50 MG TAB PO ONE ×2 (10:30)
--- NOTE | 2021-02-16 11:43 | IPNPDOC ---
Subjective Date Seen The patient was seen on 02/16/21. Subjective Chief Complaint/HPI Patient was seen and examined at bedside this morning. She was awake and crying reporting that she has a frontal headache that started overnight. She received Fioricet but had minimal relief. She denied associated photo and phonophobia. She also denied changes in vision, focal weakness and sensory changes, nausea, vomiting, chest pain, palpitations, abdominal pain, problems with urination and bowel movements. Objective Physical Examination Other physical findings General: Lying in bed, no acute distress Head/Neck/Throat: Trachea midline, mucous membranes moist Eyes: Sclera anicteric, no erythema or discharge appreciated bilaterally Thorax: Normal respiratory effort on room air, lungs clear to auscultation bilaterally, no wheezes/rales/rhonchi Cardiovascular: Normal rate, regular rhythm, normal S1, S2; no S3, S4, rubs/gallops/murmurs Abdomen: Bowel sounds present, soft/nontender/nondistended Genitourinary: No CVA tenderness, no Turner in place Musculoskeletal: Moving all extremities, no edema Skin: Warm, dry Neurologic: AAOx3, speech fluent and goal-directed, no focal deficits, grossly intact Assessment /Plan Assessment #Hypertensive emergency -Patient was successfully weaned off the nicardipine drip. However, her blood pressure this morning was elevated and she was complaining of headaches. -Increase amlodipine to 10 mg daily. Will start hydralazine 100 mg every 8 hours. Once renal function improves we will initiate valsartan. #Acute kidney injury -In setting of recently recovered hypertensive emergency as well as receiving valsartan. We will continue to monitor at this time. -Renal ultrasound showed no acute pathology #Headache -Reports headache this morning. Will obtain stat CT scan to ensure that there is no acute findings. Suspect this is due to her uncontrolled blood pressure; she may also have underlying migraines as she reports headaches throughout her childhood. -She was following up with the neurology team (reportedly Dr. Tompkins) for work-up of these headaches as an outpatient. Recommended valproate acid 1 g IV x1, and magnesium 1gm x1 for now. #Leukocytosis -No signs of systemic infection. This is likely reactive. Follow off antibiotics #Depression -Continue with buspirone, duloxetine, and quetiapine. #Peripheral vascular disease -Continue with aspirin. She is not on any statin therapy #Hypothyroidism -Continue with levothyroxine #OA -will start Tylenol for pain control #DVT prophylaxis -Heparin subcu Plan/VTE VTE Prophylaxis Ordered?: Yes VS, I&O, 24H, Fishbone Vital Signs/I&O Vital Signs Date Time Temp Pulse Resp B/P (MAP) Pulse Ox O2 Delivery O2 Flow Rate FiO2 02/16/21 10:31 210/82 02/16/21 09:59 62 02/16/21 06:00 97.8 17 97 Room Air I&O- Last 24 Hours up to 6 AM 02/16/21 06:00 Intake Total 1080 ml Output Total 350 ml Balance 730 ml Laboratory Data 24H LABS Laboratory Tests 2 02/16/21 06:59: Nucleated Red Blood Cells % (auto) 0.0, Anion Gap 4L, Glomerular Filtration Rate 36.7L, Calcium Level 9.3, Phosphorus Level 3.9#, Magnesium Level 2.1 CBC/BMP Laboratory Tests 02/16/21 06:59 MONICA EDMONDSON M.D. Feb 16, 2021 11:37
[2021-02-16] MEDS ORDERED: **hydrALAZINE** 50 MG TAB PO SCH ×3 (12:00→14:00)
[2021-02-16] MEDS ORDERED: MAG SULF 1GM/100ML (MAG RUN) 1 GM in IV 1 EA IV ONE ×2 (12:00→17:25)
--- NOTE | 2021-02-16 12:11 | REP ---
INDICATION: frontal headache. COMPARISON: Comparison head CT study is from February 14, 2021. TECHNIQUE: Helical scanning is acquired. 5 mm axial images were reformatted. Coronal MPR images were generated. FINDINGS: Bone window settings demonstrate intact bony calvarium. The digital preliminary computer instructor view is unremarkable. There is extensive vascular calcification in the distal internal carotid arteries bilaterally unchanged. On soft tissue window settings, there are again noted to be old lacunar infarcts bilaterally in the basal ganglia small-vessel changes in the periventricular white matter of the frontal lobes bilaterally and in the left and right parietal lobes unchanged. There is no evidence of acute infarction, hemorrhage, mass, extra-axial fluid collection or midline shift.. There are vascular IMPRESSION: Vascular calcification. Small vessel changes. Old lacunar infarcts in the basal ganglia bilaterally. No acute intracranial abnormality. No change from recent prior study of February 14, 2021. <Electronically signed by Markel Antunez > 02/16/21 [id number]
[2021-02-16] MEDS ORDERED: NS 0.45% 1,000 ML IV SCH (13:00)
[2021-02-16] MEDS ORDERED: VALSARTAN 80 MG TAB (DIOVAN) PO ONE (13:00)
[2021-02-16] MEDS ORDERED: VALPROATE SOD INJ 1,000 MG in D5W 50 ML IV ONE ×2 (14:00→18:00)
--- NOTE | 2021-02-16 14:31 | CR ---
CONSULTATION DATE: 02/16/2021 REQUESTING PHYSICIAN: Vinod Tidwell MD REASON FOR CONSULTATION: Uncontrolled hypertension and [id number] kidney disease. HISTORY OF PRESENT ILLNESS: Mrs. Tran is a 71-year-old female with long history of peripheral vascular disease, hypertension, hypothyroidism and osteoporosis. She was recently noticed to have a serum creatinine of about 1.6 mg/dL as an outpatient by her primary physician and was referred to our nephrology. She reports that her blood pressure has always been well controlled. However, a week prior to his admission, prednisone 10 mg daily was prescribed by her primary care physician for her back pain. Since then, her blood pressure has been quite elevated. In my office earlier his week, her blood pressure was 185/110 mmHg. The same day, the patient was seen by her primary care physician in the afternoon and blood pressure was high in the office. She had severe headache due to which she was sent to emergency room. She got admitted with hypertensive urgency and initially her blood pressure did improve with a nicardipine drip. This morning, her blood pressure is up to 200 again. The patient continues to have headache and also has back pain which has not improved. PAST MEDICAL HISTORY: 1. Longstanding hypertension. 2. Peripheral vascular disease. 3. Hypothyroidism. 4. Osteoporosis. 5. Depression. 6. Chronic kidney disease. PAST SURGICAL HISTORY: 1. Lower extremity angiogram. 2. Tonsillectomy. HOME MEDICATIONS: 1. Aspirin 81 mg daily. 2. Buspirone 7.5 mg daily. 3. Calcium carbonate 600 mg b.i.d. 4. Vitamin D 25 mcg daily. 5. Prolia 60 mg every six months for osteoporosis. 6. Depakote ER 250 mg daily. 7. Cymbalta 60 mg daily. 8. Fenofibric acid 135 mg daily. 9. Levothyroxine 112 mcg daily. 10. Metoprolol XL 100 mg daily. 11. Quetiapine 50 mg daily. 12. Vitamin E 400 units daily. ALLERGIES: SHE HAS ALLERGY TO RADIOCONTRAST MATERIAL, PLAVIX, LEVOFLOXACIN, NIACIN AND TICAGRELOR. PERSONAL AND SOCIAL HISTORY: Patient is a lifetime smoker. She does smoke about 1/2 pack of cigarettes daily. She uses marijuana and denies any alcohol use. FAMILY HISTORY: Negative for end-stage renal disease. REVIEW OF SYSTEMS: She has headaches and not feeling well. Ears, nose and throat are unremarkable. Cardiovascular system: Significant for poorly controlled hypertension for the last several days. She denies any leg edema, dyspnea or chest pain. Respiratory system is negative for cough or hemoptysis. GI system is negative for vomiting or diarrhea. She denies any abdominal pain. system is negative for dysuria or hematuria. Endocrine system is significant for hypothyroidism. She has no known history of diabetes. Hematological system is negative any long-term anticoagulation. She denies any excessive bleeding or bruises. Musculoskeletal system is significant for severe back pain. She has scoliosis. Skin is negative for rash or ulcers. PHYSICAL EXAMINATION: Thin-built, middle-aged lady, looks quite anxious. Temperature 97.8 degrees Fahrenheit, heart is 64 per minute and respiratory rate 18 per minute. Blood pressure was 153/63 mmHg this morning but then later it went up to 215/96 mmHg and oxygen saturation is 97% on room air. Head is atraumatic. She has no thyroid enlargement or JVD. Ears, nose and throat are unremarkable. Heart exam reveals a regular S1 and S2. Lungs sound clear to auscultation bilaterally. Abdomen is soft and nontender and bowel sounds are normal. There is no palpable organomegaly. Extremities: Without any cyanosis or clubbing. Neurologically she is awake, alert and oriented x3. LABORATORY DATA: Today's sodium is 142, potassium 4.5, chloride 94, CO2 34, BUN 41, creatinine 1.5. Yesterday, her TSH level was 4.84 and free T4 1.0. BUN was 33 and creatinine 1.4. On the day of admission, February 14, BUN was 34 and creatinine 1.2. Her white cell count was 15.7 on admission and that has come down to 10.3 today. BUN is 12 and creatinine 36.3. PROBLEMS: 1. Uncontrolled hypertension. Blood pressure is still very high this morning. She just had renal ultrasound and Doppler study of renal arteries. Her kidneys are average size with right kidney 9.9 cm and left kidney 9.3 cm. There is no hydronephrosis. Doppler study of renal arteries is negative for renal artery stenosis. She is not tolerating hydralazine very well and blood pressure is high. She reports severe headache. I feel that hydralazine is probably causing some of her headache. She can continue with amlodipine 10 mg daily and one dose of valsartan 160 mg be given today. She should then start with valsartan 320 mg daily starting tomorrow morning. We will need to monitor her renal function closely. 2. Temeg-dh-iqbopuo kidney disease. Her baseline creatinine even outpatient prior to this admission was about 1.5 to 1.6. She has history of drinking only Coke and never drinks water. I feel that clinically she is somewhat dehydrated. On her chemistry, CO2 is 34. I am going to start her on half normal saline 75 mL per hour for one liter. I think that she should be well hydrated while we starting angiotensin receptor maria elena. Kidney function will need to be monitored closely. She does not have a urinalysis here in the hospital. However, I do not recall that she has any proteinuria history prior to this admission. We will get a urinalysis today. 3. Headache. Her headache is most likely related to high blood pressure and medication side effects. Hydralazine is likely cause of headache in addition to high blood pressure. Patient is not a suitable candidate for diuretics as she is to be clinically dehydrated. She is already on beta maria elena with metoprolol ER 100 mg and heart rate is only 60. She cannot take any more beta maria elena or calcium channel maria elena due to risk for bradycardia. Angiotensin receptor maria elena is being started while she is being monitored here in the hospital. Renal ultrasound is negative for any hydronephrosis. 4. Back pain. She has chronic issue with scoliosis and degenerative disc disease. Her back pain should be managed with analgesics. She is not a suitable candidate for NSAIDs. I feel that she can take tramadol or hydrocodone. Thank you for involving me in the care of Mrs. Tran. I will follow her along with you.
[2021-02-16] MEDS ORDERED: amLODIPine 5 MG TAB PO ONE (16:00)
[2021-02-16] MEDS ORDERED: **hydrALAZINE HCL** 25 MG TAB PO ONE (17:10)
[2021-02-16] MEDS ORDERED: cloNIDine 0.2 MG TAB PO ONE (20:20)
[2021-02-16] MEDS ORDERED: MORPHINE 2 MG/ML 1ML VIAL (J2270) IV ONE (20:20)
[2021-02-16] MEDS: busPIRone 5 MG TAB PO SCH (20:38)
[2021-02-16] MEDS: QUEtiapine FUMARATE 50MG TAB PO SCH (20:38)
[2021-02-16] MEDS: **hydrALAZINE HCL** 25 MG TAB PO SCH (21:41)
[2021-02-17] MEDS: HEPARIN SOD (PORCINE) 5000UNITS/ML 1ML VIAL/SYRINGE SQ SCH ×3 (05:18→20:58)
[2021-02-17] MEDS: LEVOTHYROXINE 112MCG TABLET (0.112MG) PO SCH (05:19)
[2021-02-17] MEDS: **hydrALAZINE HCL** 25 MG TAB PO SCH ×3 (05:19→20:57)
[2021-02-17 05:21] VITALS: BP 142/66
[2021-02-17 08:13] LABS: HEMATOCRIT 32.9 % (36.0-47.0); HEMOGLOBIN 11.1 g/dl (12.0-15.5); MEAN CORPUSCULAR HEMOGLOBIN 29.7 pg (27.0-33.0); MEAN CORPUSCULAR HGB CONC 33.7 g/dl (32.0-36.5); PLATELET COUNT, AUTOMATED 258 10^3/uL (150-450); RED BLOOD COUNT 3.74 10^6/uL (4.00-5.40); WHITE BLOOD COUNT 9.9 10^3/uL (4.0-10.0)
[2021-02-17 08:37] LABS: CALCIUM LEVEL 8.4 MG/DL (8.8-10.2); CREATININE FOR GFR 1.64 MG/DL (0.55-1.30); GLOMERULAR FILTRATION RATE 33.1 (>45); MAGNESIUM LEVEL 2.2 MG/DL (1.8-2.4); PHOSPHORUS LEVEL 2.6 MG/DL (2.5-4.9); POTASSIUM SERUM 4.2 MEQ/L (3.5-5.1)
[2021-02-17] MEDS: DULoxetine 30MG CAPSULE (CYMBALTA) PO SCH (09:22)
[2021-02-17] MEDS: DIVALPROEX 250 MG TAB PO SCH (09:22)
[2021-02-17] MEDS: VALSARTAN 80 MG TAB (DIOVAN) PO SCH (09:22)
[2021-02-17] MEDS: ASPIRIN 81MG ENTERIC TABLET PO SCH (09:23)
[2021-02-17 09:57] LABS: APPEARANCE, URINE HAZY (CLEAR); BACTERIA, URINE AUTO 2+ (NEGATIVE); BILIRUBIN, URINE AUTO NEGATIVE (NEGATIVE); BLOOD, URINE BLOOD NEGATIVE (NEGATIVE); COLOR, URINE YELLOW (YELLOW); GLUCOSE, URINE (UA) AUTO NEGATIVE (NEGATIVE); KETONE, URINE AUTO NEGATIVE (NEGATIVE); LEUKOCYTE ESTERASE, URINE AUTO TRACE (NEGATIVE); MUCUS, URINE SMALL (NEGATIVE); NITRITE, URINE AUTO POSITIVE (NEGATIVE); PROTEIN, URINE AUTO NEGATIVE (NEGATIVE); RBC, URINE AUTO 1 /HPF (0-3); SPECIFIC GRAVITY URINE AUTO 1.012 (1.002-1.035); SQUAMOUS EPITHELIAL CELL UR AU 0 /HPF (0-6); WBC, URINE AUTO 3 /HPF (0-3)
[2021-02-17 10:36] VITALS: BP 150/66
[2021-02-17] MEDS: ACETAMINOPHEN 325 MG TAB PO PRN ×2 (10:36→17:24)
--- NOTE | 2021-02-17 13:45 | IPN ---
NEPHROLOGY PROGRESS NOTE DATE: 02/17/2021 SUBJECTIVE: Mrs. Tran is seen this morning at her bedside. She reports some improvement in her headache. She still has some headache and backache. She denies any nausea or vomiting. Yesterday Valsartan was started and blood pressure has improved. She was also given IV fluids yesterday for one liter. OBJECTIVE: PHYSICAL EXAMINATION: VITAL SIGNS: Temperature is 98 degrees Fahrenheit, heart rate 60 per minute and respiratory rate 17 per minute, blood pressure 142/66 mm of mercury and oxygen saturation is 97% on room air. HEENT: Head is atraumatic. NECK: Supple and without JVD or thyroid enlargement. HEART: Sounds are regular. LUNGS: Clear to auscultation. ABDOMEN: Soft and nontender and bowel sounds are normal. EXTREMITIES: Without any cyanosis or clubbing. NEUROLOGICAL: She is awake, alert, and oriented x3. LABORATORY STUDIES: Today's labs show sodium 141, potassium 4.2, CO2 32, BUN 32 and creatinine 1.64. Calcium level is 8.4 and phosphorous 2.6. PROBLEMS: 1. Uncontrolled hypertension - blood pressure has improved significantly and she should continue with Valsartan 320 mg once a day in addition to Amlodipine and Metoprolol. She is also on Hydralazine 75 mg three times daily. 2. Acute kidney injury superimposed on chronic kidney disease Her baseline creatinine, even outpatient has been about 1.6 mg per deciliter. I do not feel that her kidney function is much worse than her preadmission baseline. She has very minimal oral intake of fluids as she does not drink water at all. I think that she was probably slightly dehydrated. I have encouraged the patient to increase her intake of water. Her kidney function can be monitored as an outpatient. 3. Headache her headache has gradually decreased, however not completely resolved. She understands not to use any NSAIDs. 4. Back pain this is a chronic issue with scoliosis and probably with degenerative disk disease. The patient was given Prednisone which may have contributed to her uncontrolled hypertension. Prednisone has already been stopped. She can be treated with the Tramadol or Hydrocodone, whatever she can tolerate. 5. Disposition from a renal standpoint, the patient can be discharged to home, either later today or tomorrow, once she starts feeling good, and then she will follow up in the office as an outpatient.
[2021-02-17 14:00] VITALS: BP 142/70
--- NOTE | 2021-02-17 16:04 | IPNPDOC ---
Subjective Date Seen The patient was seen on 02/17/21. Subjective Chief Complaint/HPI Patient was seen and examined at bedside this morning. She reported resolution of her headaches. She denied blurred vision, nausea, vomiting, chest pain, shortness of breath, abdominal pain, problems with urination and bowel movements. Overnight no acute events were reported. Objective Physical Examination Other physical findings General: Lying in bed, no acute distress Head/Neck/Throat: Trachea midline, mucous membranes moist Eyes: Sclera anicteric, PERRLA Thorax: Normal respiratory effort on room air, lungs clear to auscultation bilaterally, no wheezes/rales/rhonchi Cardiovascular: Normal rate, regular rhythm, normal S1, S2; no S3, S4, rubs/gallops/murmurs Abdomen: Bowel sounds present, soft/nontender/nondistended Genitourinary: No CVA tenderness, no Turner in place Musculoskeletal: Moving all extremities, no edema Skin: Warm, dry Neurologic: AAOx3, speech fluent and goal-directed, no focal deficits, grossly intact Assessment /Plan Assessment #Hypertensive emergency -Resolved. -Her blood pressure has now stabilized with amlodipine 10 mg, valsartan 320 mg daily, and hydralazine 75 mg tid. #Acute kidney injury -Resolved. -Nephrology was able to confirm her baseline creatinine is 1.6. -Renal ultrasound showed no renal stenosis. Therefore will resume valsartan. #Headache -Now resolved. With controlled blood pressure, she is asymptomatic. Continue current regimen as this has kept her blood pressure within acceptable range and lead to controlled headaches as well. -She was following up with the neurology team (Dr. Tompkins) for work-up of these headaches as an outpatient. On 02/16 she did require valproate acid 1 g IV x1, and magnesium 1gm x1 for her headaches. #Leukocytosis -Resolved. This was likely reactive. Follow off antibiotics #Depression -Continue with buspirone, duloxetine, and quetiapine. #Peripheral vascular disease -Continue with aspirin. #Hypothyroidism -Continue with levothyroxine #OA -will start Tylenol for pain control #DVT prophylaxis -Heparin subcu Disposition if renal function remains stable she will likely be discharged on 02/18. Plan/VTE VTE Prophylaxis Ordered?: Yes VS, I&O, 24H, Fishbone Vital Signs/I&O Vital Signs Date Time Temp Pulse Resp B/P (MAP) Pulse Ox O2 Delivery O2 Flow Rate FiO2 02/17/21 14:24 142/70 02/17/21 14:00 98.4 76 17 98 Room Air I&O- Last 24 Hours up to 6 AM 02/17/21 06:00 Intake Total 2300 ml Output Total 550 ml Balance 1750 ml Laboratory Data 24H LABS Laboratory Tests 2 02/17/21 07:49: Nucleated Red Blood Cells % (auto) 0.0, Anion Gap 3L, Glomerular Filtration Rate 33.1L, Calcium Level 8.4L, Phosphorus Level 2.6#, Magnesium Level 2.2 02/17/21 09:26: Urine Color YELLOW, Urine Appearance HAZY, Urine pH 6.0, Urine Specific Shafter 1.012, Urine Protein NEGATIVE, Urine Glucose (Auto)(UA) NEGATIVE, Urine Ketones (Auto) NEGATIVE, Urine Blood NEGATIVE, Urine Nitrite POSITIVE, Urine Bilirubin NEGATIVE, Urine Urobilinogen 2.0H, Urine Leukocyte Esterase (Auto) TRACEH, Urine WBC (Auto) 3, Urine RBC (Auto) 1, Urine Hyaline Casts (Auto) 0, Urine Bacteria (Auto) 2+H, Urine Squamous Epithelial Cells 0, Urine Mucus (Auto) SMALL, Urine Sperm (Auto) CBC/BMP Laboratory Tests 02/17/21 07:49 MONICA EDMONDSON M.D. Feb 17, 2021 16:04
[2021-02-17] MEDS: QUEtiapine FUMARATE 50MG TAB PO SCH (20:57)
[2021-02-17] MEDS: busPIRone 5 MG TAB PO SCH (20:57)
[2021-02-17 22:00] VITALS: BP 148/67
--- NOTE | 2021-02-18 04:49 | CR ---
CONSULTATION DATE: 02/17/2021 REFERRING PHYSICIAN: Vinod Tidwell MD REASON FOR CONSULTATION: Severe headache. HISTORY OF PRESENT ILLNESS: Majo Tran is a 71-year-old woman with history of hypertension, chronic daily headaches, depression, who presented to [facility] with acute severe exacerbation of headache. She went to her primary care physician and her blood pressure was very high and she was referred to [facility] Emergency Department. The patient has a history of chronic daily headaches. She failed Botox, Aimovig injections, topiramate, Cymbalta in the past for prevention of headaches. We recently started her on Depakote on an outpatient basis twice a day. It has helped her headaches to a certain degree. She developed acute severe headaches three or four days ago. Headache was throbbing, pounding in character all around her head. She denies any blurred vision, dizziness, double vision, dysphagia, dysarthria, diplopia or urinary incontinence. She has intermittent and back pain. Upon arrival in the emergency department, her blood pressure was 245/105 and 230/110. Her headache continued yesterday and her blood pressure was 215/96. She was on metoprolol, which was discontinued upon admission due to bradycardia. She was started on amlodipine, hydralazine. She also has acute renal insufficiency. She was seen by nephrology. She was started on valsartan in addition to amlodipine and hydralazine and her blood pressure today is much better. Her headache is also much better. She feels back to her baseline of chronic daily headaches. DIAGNOSTIC STUDIES: CT scan of head showed small vessel ischemic disease of brain and bilateral tiny lacunar old ischemic strokes. Ultrasound of kidneys and bladder were unremarkable. Her GFR was 47 and decreased to 33.1. Creatinine went from 1.2 to 1.6. WBC is 15.7 and decreased to 9.9 and hematocrit is 32.9. PAST MEDICAL HISTORY: 1. Hypertension 2. Peripheral arterial disease 3. Hypothyroidism 4. Osteoporosis 5. Chronic daily headaches 6. Depression 7. Tonsillectomy in childhood SOCIAL HISTORY: She has . She smokes half pack per day. She has used marijuana occasionally. She denies alcohol or other illicit drugs. FAMILY HISTORY: Unremarkable and noncontributory. ALLERGIES: CONTRAST DYE, PLAVIX, LEVOFLOXACIN, NIACIN, TICAGRELOR. HOME MEDICATIONS: Aspirin 81 mg by mouth daily, buspirone 7.5 mg by mouth daily, calcium with vitamin D, Prolia 60 mg subcutaneous every 6 months, Depakote DR 250 mg by mouth twice a day, Cymbalta 60 mg by mouth daily and 30 mg by mouth daily, fenofibrate 135 mg by mouth daily, levothyroxine 112 mcg by mouth daily, quetiapine 50 mg by mouth every night at bedtime, valsartan 320 mg by mouth daily, amlodipine 10 mg by mouth daily, hydralazine 75 mg by mouth three times a day and metoprolol extended release 100 mg by mouth daily was discontinued. REVIEW OF SYSTEMS: All systems were reviewed and thought to be noncontributory except as mentioned in history present illness. PHYSICAL EXAMINATION: Current blood pressure 142/66, but was extremely elevated upon admission and yesterday. This is described above. Pulse was 56 and increased to 61 and 75 respectively. Respiratory 14. Heart: Regular rate and rhythm. Lungs: Clear to auscultation. Abdomen: Soft, nontender, non-distended. No pedal edema. No musculoskeletal abnormalities. No rash. No signs of meningeal irritation. The patient is awake, alert and oriented to place, person and time. Normal speech, comprehension and repetition. Extraocular muscles are intact. No facial weakness. Tongue and uvula are midline. 5/5 strength in all four extremities. Deep tendon reflexes are 2+ throughout. Normal sensation throughout. Gait is normal. ASSESSMENT: 1. Hypertensive emergency with severe headache related to severe elevation of blood pressure. 2. Chronic daily tension headaches, intractable. 3. Acute renal insufficiency currently. PLAN: 1. I recommended Depacon 1000 mg IV times one and magnesium sulfate 1 gm IV times one yesterday to treat her acute headache. 2. I recommended improving her blood pressure control, which is much better today with adjustment of her medications. 3. Continue Depakote DR 250 mg by mouth twice a day, which is her outpatient dose. 4. Continue Cymbalta 90 mg by mouth daily and quetiapine 50 mg by mouth every night at bedtime. 5. The patient failed Topamax, Cymbalta, Botox injections and Aimovig injections on an outpatient basis. 6. Follow with our office in 1-2 weeks after hospital discharge.
[2021-02-18] MEDS: HEPARIN SOD (PORCINE) 5000UNITS/ML 1ML VIAL/SYRINGE SQ SCH (05:34)
[2021-02-18] MEDS: **hydrALAZINE HCL** 25 MG TAB PO SCH (05:35)
[2021-02-18] MEDS: LEVOTHYROXINE 112MCG TABLET (0.112MG) PO SCH (05:35)
[2021-02-18 06:00] VITALS: BP 146/68
[2021-02-18 06:11] LABS: HEMATOCRIT 35.4 % (36.0-47.0); HEMOGLOBIN 11.8 g/dl (12.0-15.5); MEAN CORPUSCULAR HEMOGLOBIN 29.4 pg (27.0-33.0); MEAN CORPUSCULAR HGB CONC 33.3 g/dl (32.0-36.5); MEAN CORPUSCULAR VOLUME 88.3 fl (80.0-96.0); PLATELET COUNT, AUTOMATED 282 10^3/uL (150-450); RED BLOOD COUNT 4.01 10^6/uL (4.00-5.40); WHITE BLOOD COUNT 9.4 10^3/uL (4.0-10.0)
[2021-02-18 06:51] LABS: CALCIUM LEVEL 8.9 MG/DL (8.8-10.2); CREATININE FOR GFR 1.4 MG/DL (0.55-1.30); GLOMERULAR FILTRATION RATE 39.7 (>45); MAGNESIUM LEVEL 2.3 MG/DL (1.8-2.4); PHOSPHORUS LEVEL 3.3 MG/DL (2.5-4.9); POTASSIUM SERUM 4.2 MEQ/L (3.5-5.1)
[2021-02-18 08:09] VITALS: BP 146/68
[2021-02-18] MEDS: ASPIRIN 81MG ENTERIC TABLET PO SCH (08:09)
[2021-02-18] MEDS: DULoxetine 30MG CAPSULE (CYMBALTA) PO SCH (08:09)
[2021-02-18] MEDS: VALSARTAN 80 MG TAB (DIOVAN) PO SCH (08:09)
[2021-02-18] MEDS: DIVALPROEX 250 MG TAB PO SCH (08:09)
[2021-02-18] MEDS ORDERED: HYDR25TA PO (10:00)
[2021-02-18] MEDS ORDERED: DIOV80TA3 PO (10:00)
[2021-02-18] MEDS ORDERED: AMLO1TAB25 PO (10:00)
[2021-02-18] MEDS ORDERED: METO1TAB7 PO ×2 (10:00→10:05)
--- NOTE | 2021-02-18 10:12 | DS.PDOC ---
Discharge Summary General Date of Admission Feb 14, 2021 at 18:29 Date of Discharge 02/18/21 Discharge Summary DISCHARGE DIAGNOSES: 1. Hypertensive emergency 2. Acute on chronic kidney disease 3. Migraines COMPLICATIONS/CHIEF COMPLAINT: Hypertensive Emergency. HOSPITAL COURSE: Ms. Tran, is a 71 year old female with a past medical history of peripheral vascular disease hypertension, hypothyroidism, osteoporosis, and depression who presented to [facility] on 02/14 with complaints of a headache. The time of admission she was noted to have blood pressure of 230/110. She was started on a nicardipine drip and successfully weaned off with transition to oral antihypertensive medications. Once her blood pressure was better controlled her headaches began to improve. CT scan of the brain was done which was negative. Patient is known to Dr. Tompkins (neurologist) service and will be fo llowed up as an outpatient for her chronic headaches. In regards to her blood pressure medications her metoprolol dose was decreased from 100 mg to 50 mg due to her low heart rate. She was started on amlodipine 10 mg daily. During hospitalization, she had acute kidney injury due to poor oral intake. Due to her resistant hypertension, a renal arterial ultrasound was recommended. This showed no renal stenosis. At the time of discharge, was determined that she was back to her baseline of approximately 1.6 (nephrology was able to confirm this with outpatient records). At this time she was not started on a diuretic to ensure that her renal function remained stable will be followed with nephrology team as an outpatient. Considering that there is no renal stenosis appreciated on ultrasound it was safe for her to resume her valsartan therefore, to better control her blood pressure hydralazine was started at 75 mg 3 times daily. Patient was in agreement with this plan will be follow-up as an outpatient with her primary physician, nephrology, and neurology. DISCHARGE MEDICATIONS: Please see below. ALLERGIES: Please see below. PHYSICAL EXAMINATION ON DISCHARGE: VITAL SIGNS: Please see below. General: Lying in bed, no acute distress Head/Neck/Throat: Trachea midline, mucous membranes moist Eyes: Sclera anicteric, PERRLA Thorax: Normal respiratory effort on room air, lungs clear to auscultation bilaterally, no wheezes/rales/rhonchi Cardiovascular: Normal rate, regular rhythm, normal S1, S2; no S3, S4, rubs/gallops/murmurs Abdomen: Bowel sounds present, soft/nontender/nondistended Genitourinary: No CVA tenderness, no Turner in place Musculoskeletal: Moving all extremities, no edema Skin: Warm, dry Neurologic: AAOx3, speech fluent and goal-directed, no focal deficits, grossly intact LABORATORY DATA: Please see below. IMAGING: RENAL US FINDINGS: Scanning at the level of the urinary bladder shows no abnormality. Renal cortical echogenicity pattern is normal bilaterally and contours are smooth. There is no evidence of hydronephrosis, cyst, mass, or calculus in either kidney. The right kidney measures 9.9 x 4.7 x 4.2 cm. Left renal dimensions are 9.3 x 3.8 x 4.7 cm. Doppler data: Peak systolic flow velocity in the abdominal aorta at the level of the main renal arteries is normal, recorded at 63 centimeters/second. Peak systolic flow velocity in the left main renal artery is 158 centimeters/second and that in the right is recorded at 131 centimeters/second. These values are normal as well. Renal to aortic flow velocity ratios are therefore normal at 2.1 on the right and 2.5 on the left. Resistive indices and acceleration times are measured in the upper, mid, and lower pole renal arteries bilaterally and these values are bilaterally normal. IMPRESSION: Normal urinary tract sonography. No Doppler evidence to suggest renal artery stenosis. CT Head without contrast FINDINGS: Bone window settings demonstrate intact bony calvarium. The digital preliminary elementary substitute teacher view is unremarkable. There is extensive vascular calcification in the distal internal carotid arteries bilaterally unchanged. On soft tissue window settings, there are again noted to be old lacunar infarcts bilaterally in the basal ganglia small-vessel changes in the periventricular white matter of the frontal lobes bilaterally and in the left and right parietal lobes unchanged. There is no evidence of acute infarction, hemorrhage, mass, extra- axial fluid collection or midline shift.. There are vascular IMPRESSION: Vascular calcification. Small vessel changes. Old lacunar infarcts in the basal ganglia bilaterally. No acute intracranial abnormality. No change from recent prior study of February 14, 2021. PROGNOSIS: Good ACTIVITY: As tolerated DIET: Regular DISCHARGE INSTRUCTIONS: As mentioned above Patient was stable at time of discharge TIME SPENT ON DISCHARGE: 30 minutes. Vital Signs/I&Os Vital Signs Date Time Temp Pulse Resp B/P (MAP) Pulse Ox O2 Delivery O2 Flow Rate FiO2 02/18/21 08:09 146/68 10/4/21 06:00 98.0 75 16 95 Room Air I&O- Last 24 Hours up to 6 AM 02/18/21 05:59 Intake Total 870 ml Output Total 950 ml Balance -80 ml Laboratory Data Labs 24H Laboratory Tests 2 02/18/21 05:38: Nucleated Red Blood Cells % (auto) 0.0, Anion Gap 3L, Glomerular Filtration Rate 39.7L, Calcium Level 8.9, Phosphorus Level 3.3#, Magnesium Level 2.3 CBC/BMP Laboratory Tests 02/18/21 05:38 Discharge Medications Scheduled Amlodipine Besylate (Amlodipine Besylate) 10 Mg Tablet, 10 MG PO DAILY Aspirin (Aspirin EC) 81 Mg Tablet.dr, 81 MG PO DAILY, (Reported) Buspirone HCl (Buspirone HCl) 15 Mg Tab, 7.5 MG PO QHS, (Reported) Calcium Carbonate (Calcium) 600 Mg Tab, 600 MG PO BID, (Reported) Cholecalciferol (Vitamin D3) (Vitamin D3) 25 Mcg Capsule, 75 MCG PO QPM, (Reported) Denosumab Injection (Prolia) 60 Mg/1 Ml Syringe, 60 MG SC ASDIRECTED, (Reported) EVERY 6 MONTHS, DUE 02/18/21 Divalproex Sodium (Divalproex Sodium) 250 Mg Tablet.dr, 250 MG PO DAILY, (Reported) Duloxetine Hcl (Cymbalta) 60 Mg Capsule.dr, 60 MG PO DAILY, (Reported) TAKES WITH 30 MG CAPSULE FOR 90 MG TOTAL DOSE Duloxetine Hcl (Cymbalta) 30 Mg Capsule.dr, 30 MG PO DAILY, (Reported) TAKES WITH 60 MG CAPSULE FOR 90 MG TOTAL DOSE Fenofibric Acid (Choline) (Fenofibric Acid) 135 Mg Cap, 135 MG PO QPM, (Reported) Hydralazine HCl (Hydralazine HCl) 25 Mg Tablet, 75 MG PO Q8H Levothyroxine Sodium (Levothyroxine Sodium) 112 Mcg Tablet, 112 MCG PO DAILY, (Reported) Metoprolol Succinate (Metoprolol Succinate) 50 Mg Tab.er.24h, 1 TAB PO DAILY Do not take if your heart rate is less than 60 Quetiapine Fumarate (Quetiapine Fumarate) 50 Mg Tablet, 50 MG PO QHS, (Reported) Valsartan (Diovan) 80 Mg Tablet, 320 MG PO DAILY Vitamin E (Vitamin E) 400 Unit Capsule, 400 UNIT PO QPM, (Reported) Scheduled PRN Baclofen (Baclofen) 10 Mg Tablet, 10 MG PO DAILY PRN for SPASMS, (Reported) Butalb/Acetaminophen/Caffeine (Dbmxby-Kgswwjei-Tomv 50-325-40) 1 Each Tablet, 2 TABS PO DAILY PRN for MIGRAINE, (Reported) Allergies Coded Allergies: Contrast Media (Verified Allergy, Intermediate, HIVES, 12/29/17) clopidogrel (Unverified Allergy, Unknown, 02/14/21) levofloxacin (Verified Adverse Reaction, Intermediate, MUSCLE RIGIDITY, 02/14/21) niacin (Verified Adverse Reaction, Intermediate, HIVES/FLUSHING, 02/14/21) ticagrelor (Verified Adverse Reaction, Intermediate, TACHYCARDIA, 02/14/21) MONICA EDMONDSON M.D. Feb 18, 2021 10:11
--- NOTE | 2021-02-18 19:15 | IPN ---
PROGRESS NOTE DATE: 02/18/2021 SUBJECTIVE: Mrs. Tran is seen this morning on her bedside. She is feeling much better and her headache has improved and blood pressure has remained stable. She denies any nausea or vomiting. PHYSICAL EXAMINATION: VITALS: Temperature 98 degrees Fahrenheit, heart rate 75 per minute, respiratory rate 16 per minute, blood pressure 146/68 mmHg and oxygen saturation 95% on room air. HEENT: Head is atraumatic. Neck is supple and without JVD or thyroid enlargement. HEART: Heart sounds are regular. LUNGS: Clear to auscultation bilaterally. ABDOMEN: Soft and nontender and bowel sounds are normal. EXTREMITIES: Without any cyanosis or clubbing. NEUROLOGIC: She is at her baseline mentation without a focal deficit. LABORATORY DATA: Today's labs show WBC 9.4, hemoglobin 11.8, hematocrit 35.4. Sodium 143, potassium 4.2, CO2 31, BUN 32, creatinine 1.40, glucose 81 and calcium 8.9. PROBLEMS: 1. Acute kidney injury superimposed on chronic kidney disease: Improvement in kidney function noticed since yesterday. Patient clearly understands that she needs to increase her oral fluid intake. Unfortunately, she has not been drinking water at all and only drinks Coke. She is being encouraged to continue with adequate oral intake of water. Her renal ultrasound was negative for any renal artery stenosis or hydronephrosis. She will be followed up as an outpatient. 2. Hypertension: Blood pressure control has improved with adjustment in her medications. She has required quite a significant dose of antihypertensives. Renal artery stenosis has been ruled out. She will be followed up in my office for further adjustment in her medications. 3. Headache: Her headache was most likely related to high blood pressure and has also improved. 4. Back pain: This is a chronic issue due to scoliosis and degenerative disc disease. She will follow-up with her primary care physician. DISPOSITION: From a renal standpoint, she can be discharged to home today and follow-up in the clinic next week when she already has an appointment scheduled.
== END 2021-02-18 11:31 | disposition home or self-care (01) | DRG 305 ==
LOC: M ED 15:42 → M ED INP 18:29 → ENRESERV 19:52 → M ICU 20:40 → M MSPAV 02-15 14:02
PROVIDERS: ADMIT Internal Medicine; ATTEND Internal Medicine
DX: I16.0 Hypertensive urgency (principal); N17.9 Acute kidney failure, unspecified; G43.909 Migraine, unspecified, not intractable, without status migrainosus; I73.9 Peripheral vascular disease, unspecified; E03.9 Hypothyroidism, unspecified; M81.0 Age-related osteoporosis without current pathological fracture; F32.9 Major depressive disorder, single episode, unspecified; Z79.82 Long term (current) use of aspirin; Z79.899 Other long term (current) drug therapy; Z91.041 Radiographic dye allergy status; Z88.8 Allergy status to other drugs, medicaments and biological substances; F17.210 Nicotine dependence, cigarettes, uncomplicated; F12.90 Cannabis use, unspecified, uncomplicated; M19.90 Unspecified osteoarthritis, unspecified site; N18.9 Chronic kidney disease, unspecified; I12.9 Hypertensive chronic kidney disease with stage 1 through stage 4 chronic kidney disease, or unspecified chronic kidney disease

== ENCOUNTER → 2021-02-25 | Outpatient (CLI) | payer MEDICARE, OTHER ==
[~2021-02-25] MED LIST changes: +AMLO1TAB25 PO; +ASPI81TA26 PO; +BACL10TA2 PO; +BUTA-199 PO; +CYMB1CAP5 PO; +CYMB60CA3 PO; +D-101000 PO; +DIOV80TA3 PO; +DIVA250T67 PO; +HYDR25TA PO; +LEVO112T2 PO; +METO1TAB7 PO; +PROL60SO SC; +QUET50TA4 PO; +VITA400C53 PO
--- NOTE | 2021-02-25 14:59 | REP ---
INDICATION: CLAUDICATION. COMPARISON: 08/10/2020 TECHNIQUE: Real time schmidt scale and color Doppler evaluation of the left lower extremity arterial vasculature using linear high frequency transducer. FINDINGS: The ankle to brachial index of the left lower extremity is 0.71. Color Doppler interrogation demonstrates moderate atheromatous plaquing throughout the extremity with biphasic arterial wave patterns and approximately 2:1 stenosis at the common femoral artery/proximal superficial femoral artery. No evidence for occlusion. PSV(cm/sec) Common femoral artery: 236 cm/s Profunda femoris artery: 344 cm/s Proximal superficial femoral artery: 242 cm/s Mid superficial femoral artery: 113 cm/s Distal superficial femoral artery: 108 cm/s Popliteal artery: 90 cm/s Proximal ALEX: 58 cm/s Tibioperoneal trunk: 38 cm/s Proximal PROJECT FINANCE ANALYST: 38 cm/s Distal PROJECT FINANCE ANALYST: 27 cm/s Distal ALEX: 32 cm/s IMPRESSION: Approximately 2-1 stenosis at the level of the proximal superficial femoral artery with moderate atherosclerotic changes again noted. <Electronically signed by Alex Colon > 02/25/21 [id number]
== END ==
LOC: M RAD 13:58
PROVIDERS: ATTEND Surgery Vascular Surgery
DX: I70.213 Atherosclerosis of native arteries of extremities with intermittent claudication, bilateral legs (principal)

== ENCOUNTER → 2021-04-23 | Outpatient (CLI) | payer MEDICARE, OTHER ==
[~2021-04-23] MED LIST changes: -CYMB60CA3 PO; +CYMB60CA4 PO
--- NOTE | 2021-04-23 10:06 | REP ---
INDICATION: CAROTID STENOSIS COMPARISON: 05/04/2020. TECHNIQUE: Real-time ultrasound evaluation and duplex Doppler interrogation of the extracranial carotid vasculature is performed. FINDINGS: Once again there is a large amount of plaque in the right internal carotid artery. There is trickle flow seen in the proximal right internal carotid artery and a portion of the distal internal carotid artery. Findings are compatible with occlusion or near complete occlusion. Moderate plaque is seen in the left carotid bulb extending into the internal and external carotid arteries, with luminal narrowing of the left ICA less than 50% and no duplex Doppler sonographic evidence of hemodynamically significant stenosis. There is normal direction of flow in the right vertebral artery. The left vertebral artery again demonstrates bidirectional flow compatible with partial subclavian steal. RIGHT LEFT Peak systolic velocity ICA 271.5 cm/s 118.0 cm/s End diastolic velocity ICA 44.8 cm/s 16.9 cm/s Peak systolic velocity CCA 117.8 cm/s 173.5cm/s Peak systolic velocity ECA 249.2 cm/s 179.0 cm/s ICA/CCA ratio 2.3 0.7 IMPRESSION: Duplex Doppler findings compatible with occlusion or near complete occlusion of the right internal carotid artery. Luminal narrowing left ICA less than 50% with no compelling duplex Doppler sonographic evidence of hemodynamically significant stenosis. There are again findings compatible with partial subclavian steal on the left. <Electronically signed by Johny Celaya > 04/23/21 1002
== END ==
LOC: M RAD 07:02
PROVIDERS: ATTEND Surgery Vascular Surgery
DX: I65.23 Occlusion and stenosis of bilateral carotid arteries (principal)

== ENCOUNTER → 2021-08-21 | Outpatient (CLI) | payer MEDICARE, OTHER | LOC: M PLALAB 15:09 | PROVIDERS: ATTEND Nurse Practitioner Family | DX: M81.0 Age-related osteoporosis without current pathological fracture (principal) ==

== ENCOUNTER → 2021-09-24 | Outpatient (REF) | payer MEDICARE, OTHER | LOC: M LAB REF 16:41 | PROVIDERS: ATTEND Internal Medicine Nephrology | DX: N39.0 Urinary tract infection, site not specified (principal) ==

== ENCOUNTER → 2022-01-21 | Outpatient (REF) | payer MEDICARE, OTHER ==
[~2022-01-21] MED LIST changes: +ALEN70TA87 PO; -FOSA70TA PO
== END ==
LOC: M LAB REF 16:44
PROVIDERS: ATTEND Internal Medicine Nephrology
DX: N39.0 Urinary tract infection, site not specified (principal)

== ENCOUNTER → 2022-02-25 | Outpatient (CLI) | payer MEDICARE, OTHER ==
[2022-02-25 16:29] LABS: CALCIUM LEVEL 10.3 MG/DL (8.8-10.2); THYROID STIMULATING HORMONE 1.84 uIU/ML (0.358-3.740)
[2022-02-25 17:01] LABS: TOTAL 25(OH) VITAMIN D 72.7 NG/ML (30.0-100.0)
== END ==
LOC: M PLALAB 14:03
PROVIDERS: ATTEND Internal Medicine Endocrinology, Diabetes & Metabolism
DX: E89.0 Postprocedural hypothyroidism (principal); E55.9 Vitamin D deficiency, unspecified; M81.0 Age-related osteoporosis without current pathological fracture

== ENCOUNTER → 2022-10-16 | Outpatient (REF) | payer MEDICARE, OTHER ==
[~2022-10-16] MED LIST changes: +TOPI-254 PO; -TOPI50TA9 PO
== END ==
LOC: M LAB REF 16:48
PROVIDERS: ATTEND Internal Medicine Nephrology
DX: N39.0 Urinary tract infection, site not specified (principal)

== ENCOUNTER → 2022-11-13 | Outpatient (CLI) | payer MEDICARE, OTHER | LOC: M WUC 14:53 | PROVIDERS: ATTEND Student in an Organized Health Care Education/Training Program | DX: M25.572 Pain in left ankle and joints of left foot (principal) ==

== ENCOUNTER → 2023-01-09 | Outpatient (CLI) | payer MEDICARE, OTHER | LOC: M RAD 13:37 | PROVIDERS: ATTEND Surgery Vascular Surgery | DX: I65.29 Occlusion and stenosis of unspecified carotid artery (principal) ==

== ENCOUNTER → 2023-03-30 | Outpatient (CLI) | payer MEDICARE, OTHER | LOC: M WHC 12:58 | PROVIDERS: ATTEND Internal Medicine Endocrinology, Diabetes & Metabolism | DX: Z13.820 Encounter for screening for osteoporosis (principal); M81.0 Age-related osteoporosis without current pathological fracture; M85.851 Other specified disorders of bone density and structure, right thigh; M85.852 Other specified disorders of bone density and structure, left thigh ==

== ENCOUNTER → 2023-09-21 | Outpatient (CLI) | payer MEDICARE, OTHER ==
[~2023-09-21] MED LIST changes: -HYDR25TA PO; +HYDR25TA88 PO; +TOPI-21 PO; -TOPI-254 PO
[2023-09-21 17:02] LABS: HEMATOCRIT 36.6 % (36.0-47.0); HEMOGLOBIN 12.2 g/dl (12.0-15.5); MEAN CORPUSCULAR HEMOGLOBIN 29.4 pg (27.0-33.0); MEAN CORPUSCULAR HGB CONC 33.3 g/dl (32.0-36.5); MEAN CORPUSCULAR VOLUME 88.2 fl (80.0-96.0); PLATELET COUNT, AUTOMATED 394 10^3/uL (150-450); RED BLOOD COUNT 4.15 10^6/uL (4.00-5.40)
[2023-09-21 17:29] LABS: THYROID STIMULATING HORMONE 0.252 uIU/ML (0.55-4.78)
[2023-09-21 17:30] LABS: ALBUMIN 3.4 G/DL (3.2-5.2); BILIRUBIN,TOTAL 0.2 MG/DL (0.3-1.2); CALCIUM LEVEL 9.4 MG/DL (8.3-10.6); CHOLESTEROL RISK RATIO 3.29 (<5); CREATININE FOR GFR 2.07 MG/DL (0.55-1.30); GLOMERULAR FILTRATION RATE 25.1 (>39); HDL CHOLESTEROL 56.4 MG/DL (>40); LDL CHOLESTEROL 104.8 MG/DL (<100); NON-HDL-C 129.6 MG/DL; POTASSIUM SERUM 4.8 MMOL/L (3.5-5.1); TOTAL PROTEIN 6.8 G/DL (5.7-8.2)
== END ==
LOC: M LAB 16:14
PROVIDERS: ATTEND Physician Assistant
DX: M54.50 Low back pain, unspecified (principal); E78.00 Pure hypercholesterolemia, unspecified

== ENCOUNTER → 2023-10-08 | Outpatient (CLI) | payer MEDICARE, OTHER | LOC: M RAD 12:53 | PROVIDERS: ATTEND Student in an Organized Health Care Education/Training Program | DX: N18.4 Chronic kidney disease, stage 4 (severe) (principal) ==

== ENCOUNTER → 2024-04-12 | Outpatient (CLI) | payer MEDICARE, OTHER | LOC: M RAD 13:53 | PROVIDERS: ATTEND Pain Medicine Interventional Pain Medicine | DX: M47.817 Spondylosis without myelopathy or radiculopathy, lumbosacral region (principal); M51.360 Other intervertebral disc degeneration, lumbar region with discogenic back pain only ==

== ENCOUNTER → 2024-04-22 | Outpatient (CLI) | payer MEDICARE, OTHER | LOC: M PLAIMG 10:16 | PROVIDERS: ATTEND Physician Assistant | DX: M65.341 Trigger finger, right ring finger (principal) ==

== ENCOUNTER → 2024-06-16 | Outpatient (CLI) | payer MEDICARE, OTHER | LOC: M RAD 13:40 | PROVIDERS: ATTEND Internal Medicine | DX: F17.210 Nicotine dependence, cigarettes, uncomplicated (principal); Z12.2 Encounter for screening for malignant neoplasm of respiratory organs; R91.1 Solitary pulmonary nodule; I25.10 Atherosclerotic heart disease of native coronary artery without angina pectoris; D35.01 Benign neoplasm of right adrenal gland ==

== ENCOUNTER → 2024-06-29 | Outpatient (CLI) | payer MEDICARE, OTHER | LOC: M SOG 07:58 | PROVIDERS: ATTEND Physician Assistant | DX: Z53.9 Procedure and treatment not carried out, unspecified reason (principal) ==

== ENCOUNTER → 2024-08-22 | Day surgery (SDC) | payer MEDICARE, OTHER ==
[~2024-08-22] VITALS: Ht 154.9 cm; Wt 54.7 kg
[~2024-08-22] MED LIST changes: +AMIT10TA7 PO; +CARV12.5 PO; +CHLO125TA PO; +DENO60SY2 SC; +LEVO100T5 PO; +LIDOCAINE W/EPINEPHRINE 1% 20ML VIAL XX ONE; +LISI10TA22 PO; -PROL60SO SC; +SODIUM BICARBONATE 8.4% INJ 50MEQ 50ML VIAL XX ONE; +VITA180C2 PO
[2024-08-22 08:28] VITALS: BP 135/68; TEMP 97.2; O2SAT 96
== END | disposition home or self-care (01) ==
LOC: M SDC 07:58
PROVIDERS: ATTEND Orthopaedic Surgery Hand Surgery
DX: M65.341 Trigger finger, right ring finger (principal); Z53.8 Procedure and treatment not carried out for other reasons

== ENCOUNTER → 2025-03-09 | Outpatient (CLI) | payer MEDICARE, OTHER ==
[~2025-03-09] MED LIST changes: +AMIT10TA11 PO; -AMIT10TA7 PO; -LIDOCAINE W/EPINEPHRINE 1% 20ML VIAL XX ONE; -SODIUM BICARBONATE 8.4% INJ 50MEQ 50ML VIAL XX ONE
== END ==
LOC: M RAD 14:45
PROVIDERS: ATTEND Physician Assistant
DX: I65.23 Occlusion and stenosis of bilateral carotid arteries (principal)

== ENCOUNTER → 2025-03-31 | Outpatient (CLI) | payer MEDICARE, OTHER | LOC: M WHC 13:57 | PROVIDERS: ATTEND Nurse Practitioner Family | DX: M81.0 Age-related osteoporosis without current pathological fracture (principal) ==